=== PATIENT | female | born 1995 | race Caucasian/White ===

== ENCOUNTER 2016-11-25 00:40 | Inpatient (IN) | payer BC ==
[2016-11-25] MEDS ORDERED: PENICILLIN G POTASSIUM 5,000,000 UNIT in DEXTROSE 5% IN WATER 100 ML IV STA ×2 (01:25)
[2016-11-25] MEDS ORDERED: TERBUTALINE 1 MG/ML VIAL SQ PRN (01:25)
[2016-11-25] MEDS ORDERED: OXYTOCIN 10 UNIT/ML 1 ML VIAL IM PRN (01:25)
[2016-11-25] MEDS ORDERED: METHYLERGONOVINE 0.2 MG/ML 1 ML AMP IM PRN (01:25)
[2016-11-25] MEDS ORDERED: CARBOPROST TROMETHAMINE 250 MCG/ML 1 ML AMP IM PRN (01:25)
[2016-11-25] MEDS ORDERED: LIDOCAINE 1% (PF) 10 MG/ML (30 ML SDV) SQ PRN (01:25)
[2016-11-25] MEDS ORDERED: OXYTOCIN 20 UNITS/1000 ML NS 1,000 ML IV SCH (01:30)
[2016-11-25] MEDS: LACTATED RINGERS 1,000 ML IV SCH ×4 (01:55→22:14)
[2016-11-25 02:10] LABS: Basophils # (A) 0.1 k/uL (0-0.2); Basophils % (A) 1 %; CH 27.5; CHCM 33.2; Eosinophils # (A) 0.1 k/uL (0-0.7); Eosinophils % (A) 1 %; HCT 35.7 % (34.0-46.0); HDW 3.46; HGB 11.6 gm/dL (11.4-16.0); Luc # (Auto) 0.23; Luc % (Auto) 2; Lymphocytes # (A) 1.7 k/uL (1.0-4.8); Lymphocytes % (A) 14 %; MCH 27.1 pg (25.0-35.0); MCHC 32.6 g/dL (31.0-37.0); MCV 83.2 fL (80.0-100.0); Mean Platelet Volume 7.4; Monocytes # (A) 0.7 k/uL (0-1.0); Monocytes % (A) 6 %; Neutrophils # (A) 9.2 k/uL (1.3-7.7); Neutrophils % (A) 77 %; Poikilocytosis Slight; RBC 4.29 m/uL (3.80-5.40); RDW 14.1 % (11.5-15.5); WBC 11.9 k/uL (3.8-10.6); WBC (Perox) 13.02
[2016-11-25 02:18] LABS: ALT 26 U/L (9-52); AST 18 U/L (14-36); Blood Urea Nitrogen 9 mg/dL (7-17); Glucose 111 mg/dL (74-99); INR 0.9 (<1.1); LDH 529 U/L (313-618); Non-African American GFR(MDRD) >60 (>60 ml/min/1.73 sqM); Partial Thromboplastin Time 22.5 sec (22.0-30.0); Prothrombin Time 9.7 sec (9.0-12.0)
[2016-11-25 03:14] LABS: Hepatitis B Surface Ag Index 0.06
[2016-11-25 04:36] LABS: Appearance,Urine Clear (Clear); Bacteria,Urine Rare /hpf; Bilirubin,Urine Negative (Negative); Glucose,Urine (UA) Negative (Negative); Ketones,Urine Negative (Negative); Leukocyte Esterase,Urine Small (Negative); Mucus,Urine Rare /hpf; Nitrite,Urine Positive (Negative); PH, Urine 6.5 (5.0-8.0); Particle Count 5949; Protein,Urine Negative (Negative); RBC,Urine 1 /hpf (0-5); Specific Gravity,Urine 1.015 (1.001-1.035); Squamous Epithelial Cell,Urine 3 /hpf (0-4); UA Billing (MACRO vs. MICRO) MICRO; Urobilinogen,Urine <2.0 mg/dL (<2.0); WBC,Urine 11 /hpf (0-5)
[2016-11-25] MEDS: PENICILLIN G POTASSIUM 2,500,000 UNIT in DEXTROSE 5% IN WATER 100 ML IV SCH ×8 (06:01→18:13)
[2016-11-25] MEDS: BUTORPHANOL 1 MG/ML 1 ML VIAL IV PRN ×2 (08:39→10:53)
--- NOTE | 2016-11-25 09:01 | P.HPOB ---
History of Present Illness H&P Date: 11/25/16 Chief Complaint: 38+ weeks, spontaneous rupture of membranes The patient is a 21-year-old 1 para 0 admitted at 38+ weeks by reportedly good dating parameters. She is admitted with documented spontaneous rupture of membranes of clear fluid. She has had no local care but received care through the [facility] system in [place], but chose to present [facility] [place] when she had spontaneous rupture of membranes last night. Her has reportedly been uncomplicated though group B strep status is positive. On admission, all signs are reassuring. Obstetrical history 1 para 0 with current statistics as they are known listed in history of present illness. We are not in possession of her record at this time and labs are pending as is retrieval of the record. Gynecologic history is reportedly uncomplicated with no history of any infections to include STDs. Review of Systems Review of systems is confined to history of present illness. Past Medical History Past Medical History: No Reported History History of Any Multi-Drug Resistant Organisms: None Reported Additional Past Surgical History / Comment(s): ear tubes as an Past Anesthesia/Blood Transfusion Reactions: No Reported Reaction Past Psychological History: No Psychological Hx Reported Smoking Status: Never smoker Past Alcohol Use History: None Reported Past Drug Use History: None Reported - Past Family History Mother Family Medical History: Cancer Additional Family Medical History / Comment(s): breast cancer Sister(s) Family Medical History: Diabetes Mellitus Medications and Allergies Home Medications Medication Instructions Recorded Confirmed Type Pnv with Ca,No.72/Iron/FA 1 tab PO DAILY 11/25/16 11/25/16 History [ Plus Tablet] methylPREDNISolone Dose Pack 1 tab PO DAILY 11/25/16 11/25/16 History [Medrol Dose Pack] Allergies Allergy/AdvReac Type Severity Reaction Status Date / Time No Known Allergies Allergy Verified 11/25/16 00:50 Exam - Vital Signs Vital signs: Vital Signs Temp Pulse Resp BP Pulse Ox 11/25/16 01:25 98.1 F 112 H 16 145/79 11/25/16 01:12 97.5 F L 91 16 151/73 100 Intake and Output 11/24/16 11/25/16 11/25/16 22:59 06:59 14:59 Intake Total 100 Balance 100 Intake: Intake, IV Titration 100 Amount Penicillin G Potassium 5, 100 000,000 unit In Dextrose 5% in Water 100 ml @ 100 mls/hr IV ONCE STA Rx#: [id number] Other: # Voids 1 Weight 81.193 kg In general, this is a well-developed, well-nourished white female in no acute distress. Her heart has a regular rhythm and rate without murmur. Her lungs are clear to auscultation bilaterally in all ni. Her abdomen is gravid, nondistended, has normal active bowel sounds, soft, nontender, and without any palpable masses aside from uterine fundus. Her extremities are without any cyanosis, clubbing, or significant edema and are nontender to palpation bilaterally. Digital cervical examination performed by the nursing staff most recently demonstrates her cervix to be 2 cm dilated, approximately 50% effaced with the vertex in presentation at -2-3 station. Spontaneous rupture of membranes is confirmed. Results Result Diagrams: 11/25/16 01:50 11/25/16 01:50 Abnormal Lab Results - Last 24 Hours (Table) 11/25/16 11/25/16 11/25/16 Range/Units 01:50 01:50 04:00 WBC 11.9 H (3.8-10.6) k/uL Neutrophils # 9.2 H (1.3-7.7) k/uL Glucose 111 H (74-99) mg/dL Urine Nitrite Positive H (Negative) Ur Leukocyte Esterase Small H (Negative) Urine WBC 11 H (0-5) /hpf Urine WBC Clumps Rare H (None) /hpf Urine Bacteria Rare H (None) /hpf Urine Mucus Rare H (None) /hpf Assessment and Plan (1) Spontaneous rupture of amniotic membranes Status: Acute (2) Term Status: Acute Plan: Patient was given the opportunity to travel to her own hospital where her care has occurred through the which she declined. As result, she has been admitted for active management of labor. As she is remote from delivery, Pitocin augmentation was started as well as antibiotic prophylaxis for group B strep colonization. She will continue to have close maternal and surveillance and expectant management will be practiced. She is a candidate for either IV or epidural analgesia, whichever she may choose.
[2016-11-25] MEDS ORDERED: BUPIVACAINE (PF) 0.25% 30 ML VIAL ONE ×2 (13:30→19:13)
[2016-11-25] MEDS ORDERED: fentaNYL (PF) 50 MCG/ML 5 ML AMP ONE ×2 (13:30→19:13)
[2016-11-25] MEDS ORDERED: SODIUM CHLORIDE 0.9% 100 ML BAG ONE ×2 (13:30→19:13)
[2016-11-25] MEDS ORDERED: LACTATED RINGERS 1,000 ML IV ONE (19:00)
[2016-11-25] MEDS ORDERED: CITRIC ACID-SODIUM CITRATE 15 ML CUP PO ONE (19:00)
[2016-11-25] MEDS ORDERED: ONDANSETRON 4 MG/2 ML VIAL ONE (19:13)
[2016-11-25] MEDS ORDERED: OXYTOCIN 10 UNIT/ML 1 ML VIAL ONE (19:13)
[2016-11-25] MEDS ORDERED: ceFAZolin 1,000 MG VIAL ONE (19:13)
[2016-11-25] MEDS ORDERED: KETOROLAC 30 MG/ML 1 ML VIAL ONE (19:13)
[2016-11-25] MEDS ORDERED: ZOLPIDEM 5 MG TAB PO PRN (20:01)
[2016-11-25] MEDS ORDERED: ONDANSETRON 4 MG/2 ML VIAL IVP PRN (20:01)
[2016-11-25] MEDS ORDERED: diphenhydrAMINE 50 MG/ML 1 ML VIAL IVP PRN (20:01)
[2016-11-25] MEDS ORDERED: METOCLOPRAMIDE 5 MG/ML 2 ML VIAL IVP PRN (20:01)
--- NOTE | 2016-11-25 20:01 | P.OP ---
Date of Procedure: 11/25/16 Preoperative Diagnosis: 38-4/7 weeks intrauterine , of the month patient, prolonged rupture of membranes, positive group B strep cultures, arrest of dilatation and descent. Postoperative Diagnosis: Heart shaped uterus, left occiput transverse position, liveborn male infant. Procedure(s) Performed: Primary low transverse section Anesthesia: epidural Surgeon: Claire Nelson Electronic Parts Salesperson #1: Glory Guzman Estimated Blood Loss (ml): 700 IV fluids (ml): 900 Urine output (ml): 100 Pathology: other (Placenta) Condition: stable Disposition: observation Indications for Procedure: Arrest of dilatation and descent at 4-5 cm, 80%, -2. Operative Findings: Heart shaped uterus with septum intermediate down the uterine fundus. Description of Procedure: Patient is brought to the operative suite where the previously placed epidural for labor was topped off per the anesthesia staff. Patient's pain is in the dorsal supine position with left lateral uterine displacement. The appropriate timeout is performed to assure proper patient and procedural identification. Epidural was checked and noted to be adequate. A low transverse skin incision is made in this is carried down through the subcutaneous tissue. Fascia is isolated, scored and extended bilaterally with curved Kelley scissors. Peritoneum is next identified and incised, there is no bowel or bladder involvement. Bladder blade is placed over the dome of the bladder and at all times the bladder is Well from the operative field to avoid any bladder and/or ureteral injury. Scalpel was used to incise the myometrium in a low-transverse fashion. Infant's head is delivered in the left occiput transverse position. The oropharynx, nasopharynx, and external nares were all bulb suctioned on the abdomen. Patient is officially delivered of a liveborn male with scores of 8 and 8 at one and 5 minutes respectively. time 1928 hrs. Placentas delivered manually, it is inspected and noted to be intact with trivascular cord at 1929 hrs. Uterus is then swept clean with a sponge to avoid any retained products of conception at which time a uterine septum is noted in the midline, approximately half way down the fundal portion of the uterus. Care is taken to assure both sections of the uterus are completely clear of any retained products. Uterus is massaged. It is closed in a two- step fashion, first layer running locking with 0 Vicryl, second layer imbricated with 0 Vicryl. Excellent reapproximation and hemostasis is noted. Bilateral tubes and ovaries are noted to be within normal limits to inspection. Abdomen is suctioned with suction on guard posterior to the uterus, and then the uterus is gently placed back into the abdominal cavity. Bilateral gutters are inspected and cleaned. Peritoneum was allowed to close by secondary intention. Fascia is closed in a running stitch of 0 Vicryl with over ligation in the midline. Subcutaneous tissue is irrigated, noted to be clean and dry. It is reapproximated with 3-0 Vicryl in a running stitch. 4-0 undyed Vicryl issues for final skin closure. Steri-Strips and Mastisol are applied to the wound. The uterus is massaged. Total estimated blood loss 700 mL's. Patient is brought back to the recovery room in very good condition with stable vital signs including blood pressure 107/60, pulse 110, 100% O2 saturation. Patient and her are requesting circumcision further infant son.
[2016-11-25] MEDS: SENNOSIDES-DOCUSATE SODIUM 1 EACH TAB PO SCH (20:48)
[2016-11-25] MEDS: HYDROmorphone PCA 5 MG/25 ML SYRINGE IV PRN (20:59)
[2016-11-26] MEDS: HYDROmorphone PCA 5 MG/25 ML SYRINGE IV PRN (03:29)
[2016-11-26] MEDS: LACTATED RINGERS 1,000 ML IV SCH (06:29)
[2016-11-26 07:31] LABS: Basophils % (A) 0 %; CH 27.8; CHCM 32.9; Eosinophils # (A) 0.1 k/uL (0-0.7); Eosinophils % (A) 1 %; HCT 29.5 % (34.0-46.0); HDW 3.42; Hypochromasia Slight; Luc # (Auto) 0.18; Luc % (Auto) 1; Lymphocytes # (A) 1.7 k/uL (1.0-4.8); Lymphocytes % (A) 13 %; MCH 27.7 pg (25.0-35.0); MCHC 32.5 g/dL (31.0-37.0); MCV 85.2 fL (80.0-100.0); Mean Platelet Volume 7.6; Monocytes # (A) 0.6 k/uL (0-1.0); Monocytes % (A) 5 %; Neutrophils # (A) 10.5 k/uL (1.3-7.7); Neutrophils % (A) 81 %; Poikilocytosis Slight; RBC 3.46 m/uL (3.80-5.40); RDW 14.6 % (11.5-15.5); WBC 13.1 k/uL (3.8-10.6); WBC (Perox) 13.52
[2016-11-26 07:33] LABS: HGB 9.6 gm/dL (11.4-16.0)
[2016-11-26] MEDS: SENNOSIDES-DOCUSATE SODIUM 1 EACH TAB PO SCH ×2 (08:34→20:59)
[2016-11-26] MEDS: IBUPROFEN 600 MG TAB PO PRN ×3 (08:35→21:05)
--- NOTE | 2016-11-26 08:49 | P.PN ---
Subjective Principal diagnosis: Postoperative day #1 Slept well, positive flatus, minimal pain. Objective - Vital Signs Vital signs: Vital Signs Temp 97.8 F 11/26/16 04:00 Pulse 96 11/26/16 04:00 Resp 16 11/26/16 04:00 BP 123/79 11/26/16 04:00 Pulse Ox 100 11/25/16 01:12 Intake & Output 11/25/16 11/26/16 11/26/16 18:59 06:59 18:59 Intake Total 2000 1000 Output Total 1100 Balance 2000 -100 Intake: IV 2000 1000 Lactated Ringers 1,000 ml 2000 1000 @ 125 mls/hr IV .Q8H AFSHAN Rx#:[id number] Output: Urine 400 Uretheral (Arizmendi) 300 Estimated Blood Loss 700 - Constitutional General appearance: Present: average body habitus, cooperative - EENT Eyes: Present: PERRLA ENT: Present: hearing grossly normal - Neck Neck: Present: normal ROM - Respiratory Respiratory: bilateral: CTA - Cardiovascular Rhythm: regular - Gastrointestinal General gastrointestinal: Present: normal bowel sounds - Genitourinary Genitourinary Comment(s): Incision clean and dry, intact, well approximated. - Neurologic Neurologic: Present: CNII-XII intact - Musculoskeletal Musculoskeletal: Present: gait normal, strength equal bilaterally - Psychiatric Psychiatric: Present: A&O x's 3, appropriate affect, intact judgment & insight - Labs CBC & Chem 7: 11/26/16 06:42 11/25/16 01:50 Labs: Abnormal Lab Results - Last 24 Hours (Table) 11/26/16 Range/Units 06:42 WBC 13.1 H (3.8-10.6) k/uL RBC 3.46 L (3.80-5.40) m/uL Hgb 9.6 L D (11.4-16.0) gm/dL Hct 29.5 L (34.0-46.0) % Neutrophils # 10.5 H (1.3-7.7) k/uL Assessment and Plan Plan: Continue postoperative care. Circumcision now, possible discharge home tomorrow. Time with Patient: Less than 30
[2016-11-26] MEDS: Acetaminophen-Codeine 300-30mg TAB PO PRN (16:39)
[2016-11-26] MEDS ORDERED: Rhogam IMMUNE GLOBULIN 1,500 UNIT/1 ML IM ONE (16:41)
[2016-11-27] MEDS: Acetaminophen-Codeine 300-30mg TAB PO PRN ×2 (03:59→12:29)
--- NOTE | 2016-11-27 07:53 | P.DS ---
Providers Date of admission: 11/25/16 01:09 Expected date of discharge: 11/27/16 Attending physician: David Lucero Primary care physician: Stated None Hospital Course: This is a 21-year-old white female 1 para 0 EDC 12/05/2016 at 38-4/7 weeks' gestation. Patient was followed by another physician at another institution for her . She had spontaneous amniorrhexis at home, was not in active labor but elected to come to our institution for labor and delivery. She was offered the option of going to her own primary care physician , but elected to stay here for . Please see my partners dictated history and physical for details. Her was remarkable for positive group B strep cultures, penicillin G was started and given every 4 hours per protocol. Patient had arrest of dilatation and descent, and therefore the decision to proceed with primary low transverse section was made. Please see dictated operative note for details. Patient gave to a liveborn male infant with scores of 8 and 8 at one and 5 minutes respectively. Infant weighed 3480 g or 7 lbs. 11 oz. There was an estimated blood loss recorded at the time of surgery of 700 mL's. This morning the patient is doing well. She is voiding, ambulating and passing flatus without difficulty. Vital signs are stable and she is afebrile. Incision is clean and dry, intact with Steri-Strips and subcutaneous stitch applied. Extremities reveal no edema. Chest is clear in all ni. Breasts are not engorged. She is working on breast-feeding her son. Circumcision has been performed. Patient is judged to be in good condition for discharge home today. I have reminded her no intercourse, tampons or douching. She will follow-up in the office with me in 2 weeks for her initial postoperative check, then likely go back to her primary care physician for the 6 week check. She will use over-the- counter ibuprofen products, 200 mg pills, 3 every 6 hours as needed for pain. Prescription for a breast pump is provided. I've discussed with her briefly options for contraception and she will discuss this further with her own primary strip machine tender in the office. Patient Condition at Discharge: Good Plan - Discharge Summary Discharge Medication List Pnv with Ca,No.72/Iron/FA [ Plus Tablet] 1 tab PO DAILY 11/25/16 [ History] methylPREDNISolone Dose Pack [Medrol Dose Pack] 1 tab PO DAILY 11/25/16 [History ] Follow up Appointment(s)/Referral(s): Claire Nelson MD [STAFF PHYSICIAN] - 2 Weeks Discharge Disposition: HOME SELF-CARE
[2016-11-27] MEDS: IBUPROFEN 600 MG TAB PO PRN ×2 (07:59→18:48)
[2016-11-27] MEDS: SENNOSIDES-DOCUSATE SODIUM 1 EACH TAB PO SCH ×2 (07:59→21:38)
[2016-11-28] MEDS: IBUPROFEN 600 MG TAB PO PRN ×2 (00:20→10:50)
[2016-11-28 05:39] LABS: HIV-1/HIV-2 Ab Screen NONREAC (NON REAC)
[2016-11-28 09:55] VITALS: PULSE 82; RESP 16; TEMP 98.2
[2016-11-28] MEDS: SENNOSIDES-DOCUSATE SODIUM 1 EACH TAB PO SCH (09:55)
[2016-11-28 16:23] VITALS: BP 166/60
== END 2016-11-28 17:45 | disposition home or self-care (01) | DRG 766 ==
LOC: FBPOP 00:40 → 4FBP 01:09
PROVIDERS: ADMIT Obstetrics & Gynecology; ATTEND Obstetrics & Gynecology
PROC: 3E0S3NZ Introduction of Analgesics, Hypnotics, Sedatives into Epidural Space, Percutaneous Approach (ICD-10-PCS; 2016-11-25)
PROC: 10D00Z1 Extraction of Products of Conception, Low, Open Approach (ICD-10-PCS; principal; 2016-11-25 19:19)
PROC: 3E0234Z Introduction of Serum, Toxoid and Vaccine into Muscle, Percutaneous Approach (ICD-10-PCS; 2016-11-26)
DX: O42.92 Full-term premature rupture of membranes, unspecified as to length of time between rupture and onset of labor (principal); N85.4 Malposition of uterus; O99.824 Streptococcus B carrier state complicating childbirth; Q51.3 Bicornate uterus; O34.03 Maternal care for unspecified congenital malformation of uterus, third trimester; O62.1 Secondary uterine inertia; O62.0 Primary inadequate contractions; Z80.3 Family history of malignant neoplasm of breast; Z83.3 Family history of diabetes mellitus; Z37.0 Single live birth; Z3A.38 38 weeks gestation of pregnancy
CPT/HCPCS: 59025; 80306; 81001; 82565; 82947; 83615; 84112; 84450; 84460; 84520; 84550; 85025; 85461; 85610; 85730; 86762; 86780; 86850; 86870; 86880; 86900; 86901; 87340; 87389; 87491; 87591; 88307; 99213

== ENCOUNTER 2018-09-28 13:19 | Inpatient (IN) | payer BC, OTHER ==
[2018-09-28] MEDS ORDERED: CITRIC ACID-SODIUM CITRATE 15 ML CUP PO ONE (13:30)
[2018-09-28] MEDS ORDERED: ceFAZolin IN SWFI 2 GM/20 ML SYRINGE IVP ONE (13:30)
[2018-09-28] MEDS: LACTATED RINGERS 1,000 ML IV SCH ×2 (14:09→17:54)
[2018-09-28 14:12] LABS: Basophils # (A) 0.1 k/uL (0-0.2); Basophils % (A) 1 %; Eosinophils # (A) 0.2 k/uL (0-0.7); Eosinophils % (A) 2 %; HCT 39.7 % (34.0-46.0); HGB 13.1 gm/dL (11.4-16.0); Lymphocytes # (A) 1.3 k/uL (1.0-4.8); Lymphocytes % (A) 12 %; MCH 27.2 pg (25.0-35.0); MCHC 33.1 g/dL (31.0-37.0); MCV 82.2 fL (80.0-100.0); Mean Platelet Volume 7.1; Monocytes # (A) 0.4 k/uL (0-1.0); Monocytes % (A) 4 %; Neutrophils # (A) 9.1 k/uL (1.3-7.7); Neutrophils % (A) 82 %; Platelet Count 257 k/uL (150-450); RBC 4.83 m/uL (3.80-5.40); RDW 14.2 % (11.5-15.5); WBC 11.1 k/uL (3.8-10.6)
[2018-09-28 14:30] LABS: Glucose,Whole Blood 71 mg/dL (75-99)
[2018-09-28 14:32] VITALS: BMI 36.9
--- NOTE | 2018-09-28 16:30 | P.HPOB ---
History of Present Illness H&P Date: 09/28/18 Chief Complaint: IUP at 38 and 5/7 weeks, oligohydramnios This is a very pleasant 23-year-old 2 para 1001 at 38-5/7 weeks with an estimated due date of 3:15. Patient was seen in the office today for routine nonstress test secondary to diet-controlled gestational diabetes subsequently a amniotic fluid index was performed by Dr. Lucero and noted to be significantly decreased at 3. Patient has a history of a septate uterus is noted to be in the right horn. Prior done for arrest of labor at 6 cm, patient is noted to be gestational diabetic as stated above and has been doing weekly NSTs per recommendations with her primary CLASSIFIED ADVERTISING SUPERVISOR Dr. Nelson. Blood sugars have been well controlled throughout the . Patient has been receiving routine care since the first trimester. On blood work she had a blood type of A-, rubella immune, hepatitis B surface antigen negative, HIV negative, RPR nonreactive, GBS negative. Review of Systems Constitutional: Denies chills, Denies fatigue, Denies fever Ears, nose, mouth and throat: Denies headache Cardiovascular: Reports leg edema Respiratory: Denies dyspnea Gastrointestinal: Denies constipation, Denies diarrhea Genitourinary: Reports Past Medical History Past Medical History: No Reported History, Diabetes Mellitus Additional Past Medical History / Comment(s): gestational diabetes History of Any Multi-Drug Resistant Organisms: None Reported Past Surgical History: Section Additional Past Surgical History / Comment(s): ear tubes as an infant Past Anesthesia/Blood Transfusion Reactions: No Reported Reaction Past Psychological History: No Psychological Hx Reported Smoking Status: Never smoker Past Alcohol Use History: None Reported Past Drug Use History: None Reported - Past Family History Mother Family Medical History: Cancer, Diabetes Mellitus Additional Family Medical History / Comment(s): breast cancer Sister(s) Family Medical History: Diabetes Mellitus Additional Family Medical History / Comment(s): gestational diabetes Medications and Allergies Home Medications Medication Instructions Recorded Confirmed Type Pnv,Calcium 72/Iron/Folic Acid 1 tab PO DAILY 11/25/16 09/28/18 History [ Plus Tablet] Allergies Allergy/AdvReac Type Severity Reaction Status Date / Time No Known Allergies Allergy Verified 08/05/18 12:28 Exam Osteopathic Statement: *. No significant issues noted on an osteopathic structural exam other than those noted in the History and Physical/Consult. Vital Signs Temp Pulse Resp BP Pulse Ox 09/28/18 13:29 97.5 F L 89 18 131/69 99 Intake and Output 09/28/18 09/28/18 09/28/18 06:59 14:59 22:59 Other: Weight 83.007 kg Targeted physical exam was done the patient in general this a well-nourished well-developed female in no acute distress. She has nonlabored breathing lungs are clear to auscultation bilaterally heart is known to have a regular rate and rhythm abdomen is noted to be gravid and appropriate for gestational age heart tones are noted to be reassuring with moderate variability and she is having irregular contractions. Results Result Diagrams: 09/28/18 13:57 Abnormal Lab Results - Last 24 Hours (Table) 09/28/18 09/28/18 Range/Units 13:57 14:07 WBC 11.1 H (3.8-10.6) k/uL Neutrophils # 9.1 H (1.3-7.7) k/uL POC Glucose (mg/dL) 71 L (75-99) mg/dL Assessment and Plan (1) Term Current Visit: Yes Status: Acute Code(s): Z34.80 - ENCOUNTER FOR SUPRVSN OF NORMAL , UNSP TRIMESTER SNOMED Code(s): 50005613 (2) GDM (gestational diabetes mellitus), class A1 Current Visit: Yes Status: Acute Code(s): O24.410 - GESTATIONAL DIABETES MELLITUS IN , DIET CONTROLLED SNOMED Code(s): 99570406 (3) Oligohydramnios Current Visit: Yes Status: Acute Code(s): O41.00X0 - OLIGOHYDRAMNIOS, UNSP TRIMESTER, NOT APPLICABLE OR UNSP SNOMED Code(s): 41413474 (4) H/O section Current Visit: Yes Status: Acute Code(s): Z98.891 - HISTORY OF UTERINE SCAR FROM PREVIOUS SURGERY SNOMED Code(s): 222821212 Plan: We'll proceed with repeat section as planned and discussed with Dr. Nelson previously. Dr. Lucero saw the patient in the office procedure was reviewed and all questions were answered.
[2018-09-28] MEDS ORDERED: diphenhydrAMINE 25 MG CAP PO PRN (16:38)
[2018-09-28] MEDS ORDERED: ACETAMINOPHEN IV (For NPO) 1,000 MG in EMPTY BAG 1 BAG IVPB ONE (16:38)
[2018-09-28] MEDS ORDERED: NALOXONE 0.4 MG/ML 1 ML VIAL IV PRN (16:38)
[2018-09-28] MEDS ORDERED: diphenhydrAMINE 50 MG/ML 1 ML VIAL IVP PRN ×2 (16:38)
[2018-09-28] MEDS ORDERED: ZOLPIDEM 5 MG TAB PO PRN (16:38)
[2018-09-28] MEDS ORDERED: diphenhydrAMINE 50 MG CAP PO PRN (16:38)
[2018-09-28] MEDS ORDERED: ONDANSETRON 4 MG/2 ML VIAL IVP PRN (16:38)
[2018-09-28] MEDS ORDERED: ACETAMINOPHEN TAB 325 MG TAB PO PRN (16:38)
[2018-09-28] MEDS ORDERED: METOCLOPRAMIDE 5 MG/ML 2 ML VIAL IVP PRN (16:38)
[2018-09-28] MEDS ORDERED: IBUPROFEN IV 800 MG in SODIUM CHLORIDE 0.9% 250 ML IV ONE (16:39)
[2018-09-28] MEDS ORDERED: KETOROLAC 30 MG/ML 1 ML VIAL ONE (16:45)
[2018-09-28] MEDS ORDERED: PHENYLEPHRINE-0.9% NACL SYG 1 MG/10 ML SYRINGE ONE (16:45)
[2018-09-28] MEDS ORDERED: ONDANSETRON 4 MG/2 ML VIAL ONE (16:45)
[2018-09-28] MEDS ORDERED: OXYTOCIN 20 UNITS/1000 ML NS 1,000 ML IV SCH (16:45)
[2018-09-28] MEDS ORDERED: MORPHINE SULFATE (PF) 0.3 MG/0.3 ML SYR ONE (16:45)
[2018-09-28] MEDS ORDERED: NALBUPHINE 10 MG/ML (1 ML AMP) ONE (16:45)
--- NOTE | 2018-09-28 17:42 | P.OP ---
Date of Procedure: 09/28/18 Preoperative Diagnosis: #1. 38-5/7 weeks, previous section, requesting repeat #2. Gestational diabetes #3. Severe oligohydramnios Postoperative Diagnosis: Same Procedure(s) Performed: #1. Repeat low transverse section Anesthesia: spinal Surgeon: David Lucero Trimming Cutter Machine #1: Gay Partida Estimated Blood Loss (ml): 400 IV fluids (ml): 800 Urine output (ml): 200 Pathology: none sent Condition: stable Disposition: floor Operative Findings: Preoperatively, the patient was seen in the office today and, and NST, was found to have a reactive NST but with to repetitive subtle relatively prolonged decelerations. As result, I performed bedside ultrasound at which time amniotic fluid index was noted to be 3.3 cm. She was counseled regarding delivery today and taken to the operating room after approximately 8 hours of fasting. She was delivered of a viable 6 lbs. 2 oz. baby boy with Apgars of 8 at 1 minute and 9 at 5 minutes delivered in the direct occiput posterior position. The placenta was delivered manually, intact, and grossly normal with a grossly normal three-vessel cord. The uterus, tubes, and ovaries were normal to inspection. The lower uterine segment, however, was very thin. Description of Procedure: The patient was prepped and draped in usual fashion after spinal anesthesia was administered by the anesthesiologist. A Pfannenstiel incision was made through pre-existing scar and extended into the abdominal cavity without difficulty. The bladder peritoneum was noted to be significantly distal to the site of the intended hysterotomy. It was therefore left intact. A 2 cm incision was made in the transverse plane of the lower uterine segment to enter the uterus at which time a small amount of clear fluid was noted. The incision was extended in both directions using the bandage scissors. The head was delivered up and through the incision where the nose and mouth were thoroughly suctioned. The remainder of the infant was delivered onto the field where the cord was doubly clamped, cut, and the infant passed for resuscitative measures with weight and Apgars as noted above. cord blood was collected for the necessity of RhoGAM prior to discharge. A segment of cord was doubly clamped, cut, and set aside should cord gases become necessary. The placenta was delivered manually and intact as noted above. The uterus was exteriorized and the interior cavity of the uterus was swept of any remaining placental or membranous fragments. The margins of the incision were grasped with Pringle clamps and the incision closed in 2 layers. The first layer was a running locking stitch of 0 chromic catgut proceeding from margin to margin followed by a running imbricating layer of 0 chromic catgut from margin to margin. Hemostasis appeared to be excellent. The posterior cul-de-sac was then suctioned using a guard and with a laparotomy sponge as well. The uterus was replaced within the abdominal cavity and the gutters swept of any remaining blood, fluid, or clot. The incision was reexamined and found to be hemostatic. The parietal peritoneum was loosely reapproximated and layer of muscles examined and found to be hemostatic. The fascia was closed with 2 running stitches of 0 Vicryl proceeding from lateral margins to the midpoint. The subcutaneous tissues were irrigated, made hemostatic with the Bovie, and reapproximated with a running stitch of 30 plain catgut. The skin was reapproximated with a running subcuticular stitch of 4-0 Vicryl followed by half -inch Steri-Strips placed with Mastisol. Estimated blood loss for the case was approximately 400 mL. There are no complications. All sponge, instrument, and needle counts were correct. The patient tolerated the procedure well and proceeded to the recovery room in stable condition. Both mother and infant are resting comfortably in recovery.
[2018-09-28] MEDS: SENNOSIDES-DOCUSATE SODIUM 1 EACH TAB PO SCH (19:56)
[2018-09-28] MEDS: HYDROcodone/APAP 5-325MG 1 EACH TAB PO PRN (23:47)
[2018-09-29] MEDS: LACTATED RINGERS 1,000 ML IV SCH ×3 (02:19→02:29)
--- NOTE | 2018-09-29 06:14 | P.PN ---
Progress Note - Text Progress Note Date: 09/29/18 POD 1 c section with duramorph spinal. Had some pain overnight which resolved with norco tab. Doing well this morning, minimal pain at incision site. moving lower ext freely, no numbness or tingling, still feels that the legs are swollen. has voided overnight and has ambulated. continue PRN norco/motrin/tylenol as needed.
[2018-09-29 07:25] LABS: Basophils % (A) 0 %; Eosinophils # (A) 0.1 k/uL (0-0.7); Eosinophils % (A) 1 %; HCT 33.7 % (34.0-46.0); HGB 10.9 gm/dL (11.4-16.0); Lymphocytes # (A) 1.5 k/uL (1.0-4.8); Lymphocytes % (A) 15 %; MCH 26.6 pg (25.0-35.0); MCHC 32.3 g/dL (31.0-37.0); MCV 82.4 fL (80.0-100.0); Mean Platelet Volume 8.2; Monocytes # (A) 0.5 k/uL (0-1.0); Monocytes % (A) 5 %; Neutrophils # (A) 8.1 k/uL (1.3-7.7); Neutrophils % (A) 78 %; Platelet Count 206 k/uL (150-450); RDW 14.3 % (11.5-15.5); WBC 10.4 k/uL (3.8-10.6)
[2018-09-29] MEDS: SENNOSIDES-DOCUSATE SODIUM 1 EACH TAB PO SCH ×2 (07:27→19:49)
[2018-09-29] MEDS: IBUPROFEN 600 MG TAB PO PRN ×3 (07:27→23:44)
--- NOTE | 2018-09-29 08:51 | P.PNOBGPC ---
Subjective - Subjective Patient reports: Reports appetite normal, Reports voiding normally, Reports pain well controlled, Reports ambulating normally : doing well Objective - Vital Signs Latest vital signs: Vital Signs Temp Pulse Resp BP Pulse Ox 09/29/18 07:55 98.5 F 103 H 18 119/82 99 09/29/18 00:00 97.8 F 87 16 144/73 98 09/28/18 20:00 97.6 F 95 16 135/68 98 09/28/18 19:30 97.8 F 94 16 143/73 98 09/28/18 19:05 97.4 F L 102 H 18 118/56 98 09/28/18 18:35 98.0 F 99 18 128/61 98 09/28/18 18:20 97.6 F 105 H 18 109/53 98 09/28/18 18:05 97.3 F L 96 18 116/56 97 09/28/18 17:50 97.4 F L 104 H 18 125/56 97 09/28/18 17:35 97.2 F L 88 18 127/60 98 09/28/18 13:29 97.5 F L 89 18 131/69 99 Intake and Output 09/28/18 09/29/18 09/29/18 22:59 06:59 14:59 Intake Total 2500 Output Total 350 600 100 Balance -350 1900 -100 Intake: IV 2500 ACETAMINOPHEN IV (For NPO 1000 ) 1,000 mg In Empty Bag 1 bag @ 400 mls/hr IVPB ONCE ONE Rx#:[id number] Ibuprofen IV 800 mg In 500 Sodium Chloride 0.9% 250 ml @ 500 mls/hr IV ONCE ONE Rx#:[id number] Oxytocin 20 Units/1000 ml 1000 Ns 1,000 ml @ Per Protocol IV .Q0M [facility] Rx#: [id number] Output: Urine 350 600 100 Uretheral (Arizmendi) 300 Other: Voiding Method Indwelling Catheter Indwelling Catheter # Voids 1 - Exam Extremities: Present: normal Abdomen: Present: normal appearance, soft. Absent: distention, tenderness Incision: Present: normal, dry, intact Uterus: Present: normal, firm (The uterine fundus is tonic and nontender just below the umbilicus.) - Labs Labs: Abnormal Lab Results - Last 24 Hours (Table) 09/28/18 09/28/18 09/29/18 Range/Units 13:57 14:07 07:12 WBC 11.1 H (3.8-10.6) k/uL Hgb 10.9 L (11.4-16.0) gm/dL Hct 33.7 L (34.0-46.0) % Neutrophils # 9.1 H 8.1 H (1.3-7.7) k/uL POC Glucose (mg/dL) 71 L (75-99) mg/dL Assessment and Plan (1) S/P section Current Visit: Yes Status: Acute Code(s): Z98.891 - HISTORY OF UTERINE SCAR FROM PREVIOUS SURGERY SNOMED Code(s): 382331978 Plan: Continue routine postoperative care. I have encouraged the patient to inability the hallways routinely. Possible discharge home tomorrow pending no complications.
[2018-09-29] MEDS: HYDROcodone/APAP 5-325MG 1 EACH TAB PO PRN ×2 (11:56→21:05)
[2018-09-29] MEDS ORDERED: PRENATAL VIT-IRON-FOLIC ACID 1 EACH CAP PO SCH (12:00)
[2018-09-29 16:20] LABS: Hemoglobin A1C 5.3 % (4.0-6.0)
[2018-09-30] MEDS: HYDROcodone/APAP 5-325MG 1 EACH TAB PO PRN (07:19)
[2018-09-30 08:33] VITALS: BP 126/74; PULSE 106; RESP 18; TEMP 98.6
[2018-09-30] MEDS: SENNOSIDES-DOCUSATE SODIUM 1 EACH TAB PO SCH (10:56)
[2018-09-30] MEDS: IBUPROFEN 600 MG TAB PO PRN (10:57)
== END 2018-09-30 13:25 | disposition home or self-care (01) | DRG 788 ==
LOC: 4FBP 13:19
PROVIDERS: ADMIT Obstetrics & Gynecology; ATTEND Obstetrics & Gynecology
PROC: 10D00Z1 Extraction of Products of Conception, Low, Open Approach (ICD-10-PCS; principal; 2018-09-28 17:13)
DX: O41.03X0 Oligohydramnios, third trimester, not applicable or unspecified (principal); O24.420 Gestational diabetes mellitus in childbirth, diet controlled; O34.211 Maternal care for low transverse scar from previous cesarean delivery; Z37.0 Single live birth; Z3A.38 38 weeks gestation of pregnancy; Z80.3 Family history of malignant neoplasm of breast; Z83.3 Family history of diabetes mellitus
CPT/HCPCS: 83036; 85025; 86850; 86870; 86880; 86900; 86901

== ENCOUNTER 2019-02-18 11:24 | Emergency (ER) | payer BC, OTHER ==
[2019-02-18] MEDS ORDERED: ONDANSETRON 4 MG/2 ML VIAL IVP STA (11:43)
[2019-02-18] MEDS ORDERED: SODIUM CHLORIDE 0.9% 1,000 ML IV STA (11:43)
--- NOTE | 2019-02-18 11:59 | ED ---
Abdominal Pain HPI - General Chief Complaint: Abdominal Pain Stated Complaint: UPPER ABDOMINAL PAIN, LOWER BACK PAIN Time Seen by Provider: 02/18/19 11:39 Source: patient Mode of arrival: ambulatory Limitations: no limitations - History of Present Illness Initial Comments: Dictation was produced using [employer] dictation software. please excuse any grammatical, word or spelling errors. Chief Complaint: 24-year-old female presents with epigastric abdominal pain. History of Present Illness: 24-year-old female presents today with epigastric abdominal pain. Patient states she's had this pain over the last week. She states that the episodes are intermittent. She reports that pain is epigastric. Denies any exacerbating or mitigating factors. She'll signs his nausea and vomiting. Her emesis is nonbloody nonbilious. She does report having black stool however this is only after she takes Pepto-Bismol. Denies any co nstitutional symptoms. Patient has history of section. The ROS documented in this emergency department record has been reviewed and confirmed by me. Those systems with pertinent positive or negative responses have been documented in the HPI. All other systems are other negative and/or noncontributory. PHYSICAL EXAM: General Impression: Alert and oriented x3, not in acute distress HEENT: Normocephalic atraumatic, extra-ocular movements intact, pupils equal and reactive to light bilaterally, mucous membranes moist. Cardiovascular: Heart regular rate and rhythm, S1&S2 audible, no murmurs, rubs or gallops Chest: Lungs clear to auscultation bilaterally, no rhonchi, no wheeze, no rales Abdomen: Bowel sounds present, abdomen soft, mild epigastric tenderness to palpation, non-distended, no organomegaly Musculoskeletal: Pulses present and equal in all extremities, no peripheral ed cherelle Motor: no focal deficits noted Neurological: CN II-XII grossly intact, no focal motor or sensory deficits noted Skin: Intact with no visualized rashes Psych: Normal affect and mood ED course: 24-year-old female presents with epigastric abdominal pain. Is upon arrival shows heart rate of 120, rest of vital signs within acceptable limits.Review vital signs are unremarkable. Laboratory evaluation obtained. Leukocytosis of 13.5. This likely secondary to stress. Rest of CBC unremarkable. Coag panel unremarkable. Urinalysis shows 6 white blood cells. Patient denies any urinary symptoms. Beta-hCG is negative. KUB x-rays negative. Patient's clinical presentation is suspicious for irritable bowel syndrome versus inflammatory bowel disease versus gastroenteritis. Patient appears well at this time. She is asymptomatic. Patient given antidiarrheal medication and Bentyl for when necessary symptoms. She is also given referral to GI doctor. Patient told to return to the emergency department if she develops worsening abdominal pain, fevers. Agreeable. Patient to be discharge. - Related Data Home Medications Medication Instructions Recorded Confirmed Sertraline HCl [Zoloft] 25 mg PO DAILY 02/18/19 02/18/19 Previous Rx's Medication Instructions Recorded Dicyclomine [Bentyl] 10 mg PO TID PRN #12 capsule 02/18/19 Loperamide HCl [Loperamide] 2 mg PO TID PRN #12 capsule 02/18/19 Allergies Allergy/AdvReac Type Severity Reaction Status Date / Time No Known Allergies Allergy Verified 02/18/19 11:37 Review of Systems ROS Statement: Those systems with pertinent positive or pertinent negative responses have been documented in the HPI. ROS Other: All systems not noted in ROS Statement are negative. Past Medical History Past Medical History: No Reported History, Diabetes Mellitus Additional Past Medical History / Comment(s): gestational diabetes History of Any Multi-Drug Resistant Organisms: None Reported Past Surgical History: Section Additional Past Surgical History / Comment(s): ear tubes as an Past Anesthesia/Blood Transfusion Reactions: No Reported Reaction Past Psychological History: No Psychological Hx Reported Smoking Status: Never smoker Past Alcohol Use History: None Reported Past Drug Use History: None Reported - Past Family History Mother Family Medical History: Cancer, Diabetes Mellitus Additional Family Medical History / Comment(s): breast cancer Sister(s) Family Medical History: Diabetes Mellitus Additional Family Medical History / Comment(s): gestational diabetes General Exam Limitations: no limitations Course Vital Signs 02/18/19 11:29 Temperature 98.2 F Pulse Rate 120 H Respiratory 20 Rate Blood Pressure 121/87 O2 Sat by Pulse 99 Oximetry Medical Decision Making - Lab Data Result diagrams: 02/18/19 12:01 02/18/19 12:01 Lab Results 02/18/19 02/18/19 02/18/19 Range/Units 12:01 12:01 12:01 WBC 13.5 H (3.8-10.6) k/uL RBC 5.34 (3.80-5.40) m/uL Hgb 14.6 (11.4-16.0) gm/dL Hct 43.8 (34.0-46.0) % MCV 82.1 (80.0-100.0) fL MCH 27.4 (25.0-35.0) pg MCHC 33.3 (31.0-37.0) g/dL RDW 14.2 (11.5-15.5) % Plt Count 341 (150-450) k/uL Neutrophils % 73 % Lymphocytes % 15 % Monocytes % 4 % Eosinophils % 6 % Basophils % 1 % Neutrophils # 9.8 H (1.3-7.7) k/uL Lymphocytes # 2.1 (1.0-4.8) k/uL Monocytes # 0.6 (0-1.0) k/uL Eosinophils # 0.8 H (0-0.7) k/uL Basophils # 0.1 (0-0.2) k/uL Sodium 141 (137-145) mmol/L Potassium 4.5 (3.5-5.1) mmol/L Chloride 105 (98-107) mmol/L Carbon Dioxide 23 (22-30) mmol/L Anion Gap 13 mmol/L BUN 13 (7-17) mg/dL Creatinine 0.79 (0.52-1.04) mg/dL Est GFR (CKD-EPI)AfAm >90 (>60 ml/min/1.73 sqM) Est GFR (CKD-EPI)NonAf >90 (>60 ml/min/1.73 sqM) Glucose 90 (74-99) mg/dL Calcium 9.4 (8.4-10.2) mg/dL Total Bilirubin 0.4 (0.2-1.3) mg/dL AST 20 (14-36) U/L ALT 31 (9-52) U/L Alkaline Phosphatase 98 (38-126) U/L Total Protein 8.1 (6.3-8.2) g/dL Albumin 4.6 (3.5-5.0) g/dL Lipase 65 (23-300) U/L Urine Color Yellow Urine Appearance Clear (Clear) Urine pH 6.0 (5.0-8.0) Ur Specific [place] 1.022 (1.001-1.035) Urine Protein Trace H (Negative) Urine Glucose (UA) Negative (Negative) Urine Ketones Negative (Negative) Urine Blood Small H (Negative) Urine Nitrite Negative (Negative) Urine Bilirubin Negative (Negative) Urine Urobilinogen <2.0 (<2.0) mg/dL Ur Leukocyte Esterase Small H (Negative) Urine RBC 20 H (0-5) /hpf Urine WBC 6 H (0-5) /hpf Ur Squamous Epith Cells 2 (0-4) /hpf Urine Mucus Occasional H (None) /hpf Urine HCG, Qual (Not Detectd) 02/18/19 Range/Units 12:01 WBC (3.8-10.6) k/uL RBC (3.80-5.40) m/uL Hgb (11.4-16.0) gm/dL Hct (34.0-46.0) % MCV (80.0-100.0) fL MCH (25.0-35.0) pg MCHC (31.0-37.0) g/dL RDW (11.5-15.5) % Plt Count (150-450) k/uL Neutrophils % % Lymphocytes % % Monocytes % % Eosinophils % % Basophils % % Neutrophils # (1.3-7.7) k/uL Lymphocytes # (1.0-4.8) k/uL Monocytes # (0-1.0) k/uL Eosinophils # (0-0.7) k/uL Basophils # (0-0.2) k/uL Sodium (137-145) mmol/L Potassium (3.5-5.1) mmol/L Chloride (98-107) mmol/L Carbon Dioxide (22-30) mmol/L Anion Gap mmol/L BUN (7-17) mg/dL Creatinine (0.52-1.04) mg/dL Est GFR (CKD-EPI)AfAm (>60 ml/min/1.73 sqM) Est GFR (CKD-EPI)NonAf (>60 ml/min/1.73 sqM) Glucose (74-99) mg/dL Calcium (8.4-10.2) mg/dL Total Bilirubin (0.2-1.3) mg/dL AST (14-36) U/L ALT (9-52) U/L Alkaline Phosphatase (38-126) U/L Total Protein (6.3-8.2) g/dL Albumin (3.5-5.0) g/dL Lipase (23-300) U/L Urine Color Urine Appearance (Clear) Urine pH (5.0-8.0) Ur Specific [place] (1.001-1.035) Urine Protein (Negative) Urine Glucose (UA) (Negative) Urine Ketones (Negative) Urine Blood (Negative) Urine Nitrite (Negative) Urine Bilirubin (Negative) Urine Urobilinogen (<2.0) mg/dL Ur Leukocyte Esterase (Negative) Urine RBC (0-5) /hpf Urine WBC (0-5) /hpf Ur Squamous Epith Cells (0-4) /hpf Urine Mucus (None) /hpf Urine HCG, Qual Not Detected (Not Detectd) Disposition Clinical Impression: Gastroenteritis Disposition: HOME SELF-CARE Condition: Good Instructions (If sedation given, give patient instructions): Acute Abdominal Pain (ED) Prescriptions: Dicyclomine [Bentyl] 10 mg PO TID PRN #12 capsule PRN Reason: abdominal cramping Loperamide HCl [Loperamide] 2 mg PO TID PRN #12 capsule PRN Reason: yes Is patient prescribed a controlled substance at d/c from ED?: No Referrals: Sesar Tovar MD [STAFF PHYSICIAN] - 1-2 days Time of Disposition: 14:02
[2019-02-18 12:24] LABS: Basophils # (A) 0.1 k/uL (0-0.2); Basophils % (A) 1 %; Eosinophils # (A) 0.8 k/uL (0-0.7); Eosinophils % (A) 6 %; HCT 43.8 % (34.0-46.0); HGB 14.6 gm/dL (11.4-16.0); Lymphocytes # (A) 2.1 k/uL (1.0-4.8); Lymphocytes % (A) 15 %; MCH 27.4 pg (25.0-35.0); MCHC 33.3 g/dL (31.0-37.0); MCV 82.1 fL (80.0-100.0); Mean Platelet Volume 6.9; Monocytes # (A) 0.6 k/uL (0-1.0); Monocytes % (A) 4 %; Neutrophils # (A) 9.8 k/uL (1.3-7.7); Neutrophils % (A) 73 %; Platelet Count 341 k/uL (150-450); RBC 5.34 m/uL (3.80-5.40); RDW 14.2 % (11.5-15.5); WBC 13.5 k/uL (3.8-10.6)
[2019-02-18 12:34] LABS: Appearance,Urine Clear (Clear); Bilirubin,Urine Negative (Negative); Blood,Urine Small (Negative); Color,Urine Yellow; Glucose,Urine (UA) Negative (Negative); Ketones,Urine Negative (Negative); Leukocyte Esterase,Urine Small (Negative); Mucus,Urine Occasional /hpf; Nitrite,Urine Negative (Negative); Protein,Urine Trace (Negative); RBC,Urine 20 /hpf (0-5); Specific Gravity,Urine 1.022 (1.001-1.035); Squamous Epithelial Cell,Urine 2 /hpf (0-4); Urobilinogen,Urine <2.0 mg/dL (<2.0); WBC,Urine 6 /hpf (0-5)
[2019-02-18 12:36] LABS: ALT 31 U/L (9-52); AST 20 U/L (14-36); African American GFR (CKD) >90 (>60 ml/min/1.73 sqM); Albumin 4.6 g/dL (3.5-5.0); Alkaline Phosphatase 98 U/L (38-126); Anion Gap 13 mmol/L; Blood Urea Nitrogen 13 mg/dL (7-17); Calcium 9.4 mg/dL (8.4-10.2); Carbon Dioxide 23 mmol/L (22-30); Chloride 105 mmol/L (98-107); Glucose 90 mg/dL (74-99); Potassium 4.5 mmol/L (3.5-5.1); Sodium 141 mmol/L (137-145); Total Bilirubin 0.4 mg/dL (0.2-1.3); Total Protein 8.1 g/dL (6.3-8.2)
--- NOTE | 2019-02-18 13:06 | XR ---
EXAMINATION TYPE: XR KUB , 2 VIEWS DATE OF EXAM ORDERED: 02/18/2019 HISTORY: abdominal pain. COMPARISON: None. FINDINGS: Lung bases are clear. Within the abdomen, the abdominal gas pattern is normal. There is no evidence of obstruction or free air. Jewelry projects over the navel. IMPRESSION: NO ACUTE INTRA-ABDOMINAL ABNORMALITY.
[2019-02-18] MEDS ORDERED: MAG HYDROX/AL HYDROX/SIMETH 30 ML, HYOSCYAMINE ELIXIR 10 ML, CIMETIDINE HCL 300 MG, LID... PO STA ×4 (13:07)
[2019-02-18 14:55] VITALS: BP 110/74; PULSE 75; RESP 16; TEMP 98.3
== END 2019-02-18 14:30 | disposition home or self-care (01) ==
LOC: EC 11:24
DX: K52.9 Noninfective gastroenteritis and colitis, unspecified (principal); Z32.02 Encounter for pregnancy test, result negative; Z79.899 Other long term (current) drug therapy
CPT/HCPCS: 36415; 80053; 83690; 85025; 81001; 81025; 74018; 99284; 96374; 96361; J2405

== ENCOUNTER 2020-07-16 01:37 | Inpatient (IN) | payer BC, OTHER ==
[2020-07-16] MEDS: LACTATED RINGERS 1,000 ML IV SCH ×2 (02:20→06:02)
[2020-07-16] MEDS ORDERED: CITRIC ACID-SODIUM CITRATE 15 ML CUP PO ONE (03:18)
[2020-07-16 04:09] LABS: Basophils % (A) 0 %; Eosinophils # (A) 0.2 k/uL (0-0.7); Eosinophils % (A) 2 %; HCT 34.1 % (34.0-46.0); HGB 11.7 gm/dL (11.4-16.0); Lymphocytes % (A) 22 %; MCHC 34.3 g/dL (31.0-37.0); MCV 78.8 fL (80.0-100.0); Mean Platelet Volume 8.1; Monocytes # (A) 0.5 k/uL (0-1.0); Monocytes % (A) 6 %; Neutrophils # (A) 6.3 k/uL (1.3-7.7); Neutrophils % (A) 68 %; Platelet Count 269 k/uL (150-450); RBC 4.32 m/uL (3.80-5.40); RDW 14.1 % (11.5-15.5); WBC 9.2 k/uL (3.8-10.6)
[2020-07-16 06:16] LABS: Glucose,Whole Blood 80 mg/dL (75-99)
[2020-07-16] MEDS ORDERED: MORPHINE SULFATE (PF) 0.3 MG/0.3 ML SYR ONE (06:39)
[2020-07-16] MEDS ORDERED: OXYTOCIN 10 UNIT/ML 1 ML VIAL ONE (06:39)
[2020-07-16] MEDS ORDERED: KETOROLAC 15 MG/ML 1 ML VIAL ONE (06:39)
[2020-07-16] MEDS ORDERED: fentaNYL (PF) 50 MCG/ML 2 ML AMP ONE (06:39)
[2020-07-16] MEDS ORDERED: ONDANSETRON 4 MG/2 ML VIAL ONE (06:39)
[2020-07-16] MEDS ORDERED: LACTATED RINGERS 1,000 ML IV ONE (07:00)
[2020-07-16] MEDS ORDERED: NALOXONE 0.4 MG/ML 1 ML VIAL IV PRN (07:04)
[2020-07-16] MEDS ORDERED: HYDROmorphone 0.5 MG/0.5 ML SYRINGE IVP PRN (07:04)
[2020-07-16] MEDS ORDERED: ONDANSETRON 4 MG/2 ML VIAL IVP PRN (07:04)
[2020-07-16] MEDS ORDERED: KETOROLAC 15 MG/ML 1 ML VIAL IVP PRN ×2 (07:04→07:41)
[2020-07-16] MEDS ORDERED: diphenhydrAMINE 50 MG/ML 1 ML VIAL IVP PRN ×3 (07:04→07:41)
--- NOTE | 2020-07-16 07:35 | P.HPOB ---
History of Present Illness H&P Date: 07/16/20 Chief Complaint: My water broke at midnight This is a 25-year-old female 3 para 2002 EDC 07/28/2020 at 38-2/7 weeks' gestation. Patient has had 2 previous sections and is scheduled for repeat and tubal ligation on July 22. However, she presented to the hospital with her water rupturing at midnight, clear fluid. Irregular rare contractions. Fetus active. history significant for blood type A-, rubella status immune. Group B strep cultures negative, HIV testing, gonorrhea and chlamydia cultures all negative. Urine culture negative. One-hour Glucola elevated and 3 hour GTT consistent with gestational diabetes. Past medical history is significant for kidney stones as well as the PUPPS rash in a previous . Past surgical history sections 2017, 2019. Eustachian tubes placed in the ears as a child. Current medications vitamins daily, Tylenol Sinus when necessary. ALLERGIES none known. Social history patient is single, father of the baby is involved. She is a former tobacco smoker. She denies alcohol or drug use. On examination patient is 4 foot 11 inches, 204 pounds, blood pressure 131/65 on admission, vital signs are all stable and patient is afebrile. The general physical exam is within normal limits. Testing of the perineal body is positive for ruptured membranes. heart rate is consistent with reactive NST. Abdomen is soft and nontender. Extremities reveal no edema. Impression: 38-2/7 weeks intrauterine , spontaneous amniorrhexis, 2 previous C-sections, requesting repeat and tubal ligation. Plan: We will proceed with primary low transverse section, antibiotic prophylaxis, and bilateral tubal ligation. All questions addressed and answered. Review of Systems Constitutional: Reports as per HPI Past Medical History Past Medical History: No Reported History Additional Past Medical History / Comment(s): gestational diabetes History of Any Multi-Drug Resistant Organisms: None Reported Past Surgical History: Section Additional Past Surgical History / Comment(s): ear tubes as an infant Past Anesthesia/Blood Transfusion Reactions: No Reported Reaction Past Psychological History: No Psychological Hx Reported Smoking Status: Never smoker Past Alcohol Use History: None Reported Past Drug Use History: None Reported - Past Family History Mother Family Medical History: Cancer, Diabetes Mellitus Additional Family Medical History / Comment(s): breast cancer Sister(s) Family Medical History: Diabetes Mellitus Additional Family Medical History / Comment(s): gestational diabetes Medications and Allergies Home Medications Medication Instructions Recorded Confirmed Type 78/Iron/Folate 1/Dha 1 each PO DAILY 02/02/20 07/16/20 History [Prenate Dha Softgel] Allergies Allergy/AdvReac Type Severity Reaction Status Date / Time No Known Allergies Allergy Verified 07/16/20 01:56 Exam Vital Signs Temp Pulse Resp BP 07/16/20 02:48 98.3 F 123 H 18 131/65 07/16/20 02:46 98.3 F 123 H 18 131/65 Intake and Output 07/15/20 07/16/20 07/16/20 22:59 06:59 14:59 Intake Total 1000 Balance 1000 Intake: IV 1000 Other: # Voids 3 Weight 92.533 kg See dictation under HPI please Results Result Diagrams: 07/16/20 03:59 Abnormal Lab Results - Last 24 Hours (Table) 07/16/20 Range/Units 03:59 MCV 78.8 L (80.0-100.0) fL Assessment and Plan Assessment: 38-2/7 weeks intrauterine , spontaneous amniorrhexis. Here for repeat and tubal ligation. Plan: 2 g of Ancef are given. We will proceed with repeat low transverse section and tubal ligation. Time with Patient: Less than 30
[2020-07-16] MEDS ORDERED: diphenhydrAMINE 50 MG CAP PO PRN (07:41)
[2020-07-16] MEDS ORDERED: diphenhydrAMINE 25 MG CAP PO PRN (07:41)
[2020-07-16] MEDS ORDERED: ZOLPIDEM 5 MG TAB PO PRN (07:41)
[2020-07-16] MEDS ORDERED: METOCLOPRAMIDE 5 MG/ML 2 ML VIAL IVP PRN (07:41)
--- NOTE | 2020-07-16 07:42 | P.OP ---
Date of Procedure: 07/16/20 Preoperative Diagnosis: 38-2/7 weeks intrauterine , spontaneous amniorrhexis. 2 previous C-sections, undesired fertility Postoperative Diagnosis: Same, liveborn male . Procedure(s) Performed: Repeat low transverse section and tubal ligation Anesthesia: spinal Surgeon: Claire Nelson Back Order Clerk #1: Juany Lindquist Estimated Blood Loss (ml): 400 IV fluids (ml): 600 Urine output (ml): 200 Pathology: none sent Condition: stable Disposition: PACU Operative Findings: Liveborn male , scores 9 and 9 at one and 5 minutes, weight 8 lbs. 2 oz. or 3680 g. Description of Procedure: Patient is brought to the operating suite where spinal analgesia is administered without difficulty. She's placed in the dorsal supine position with left lateral uterine displacement. Arizmendi catheter to direct drainage.Antibiotics are given. The appropriate timeout is performed to assure proper patient and procedural identification. Analgesia is checked and noted to be adequate. The abdomen is prepped and draped in usual sterile fashion. A repeat low transverse skin incision is made in this is carried down through the subcutaneous tissue which is approximately 3 cm in depth. The fascia is isolated, scored, and extended bilaterally with curved Kelley scissors. Peritoneum is next identified and incised, there is no bowel or bladder involvement. Metzenbaum scissors are used to develop the bladder flap and it is at all times Well from the operative field to avoid bladder and/or ureteral injury. A repeat low transverse uterine incision is made and extended with blunt dissection. Clear fluid is encountered. The 's head is delivered occiput anterior. Patient is officially delivered of a liveborn male infant at 0656 hours. Umbilical cord is doubly clamped and ligated, he is handed to waiting nurses for evaluation where scores of 9 and 9 at one and 5 minutes respectively are given. weighs 8 lbs. 2 oz. or 3680 g. The placenta is delivered manually, it is inspected and noted to be fully intact with trivascular cord at 0657 hours. Uterus is massaged and externalized. It is swept clean with a sterile sponge to avoid any retained products of conception. The uterus is closed in a single full-thickness running locking stitch of 0 Vicryl suture for excellent reapproximation. Patient's desire to have tubal ligation is once again confirmed. Filshie clips are used in the isthmic portion of both tubes, with care to traverse the entire diameter of the tube into the mesosalpinx. Fimbriated ends are identified. Abdomen is then suctioned with suction on guard and the uterus is placed back into the abdominal cavity gently. Bilateral gutters are inspected and cleaned. All suture lines are completely intact and hemostatically stable. Peritoneum is allowed to close by secondary intention. Fascia is closed in a running stitch of 0 Vicryl suture with over ligation in the midline. The wound is irrigated, noted to be clean and dry. Subcutaneous tissue is reapproximated in a running stitch of 3-0 Vicryl. 4-0 undyed Monocryl is used for final skin closure. Steri-Strips and Mastisol are applied to the wound. Uterus is massaged. All sponge needle and enhancement counts are correct. Arizmendi is noted to be draining clear urine. Patient is brought back to the recovery room in very good condition with a pulse of 68, blood pressure 117/78. They are requesting circumcision for their infant son.
[2020-07-16] MEDS ORDERED: LACTATED RINGERS 1,000 ML IV SCH (07:45)
[2020-07-16] MEDS ORDERED: OXYTOCIN 20 UNITS/1000 ML NS 1,000 ML IV SCH (08:15)
[2020-07-16] MEDS: IBUPROFEN 600 MG TAB PO PRN (20:03)
[2020-07-16] MEDS: SENNOSIDES-DOCUSATE SODIUM 1 EACH TAB PO SCH (20:04)
[2020-07-17] MEDS: ACETAMINOPHEN TAB 325 MG TAB PO PRN ×3 (02:58→19:48)
--- NOTE | 2020-07-17 06:03 | P.PN ---
Progress Note - Text Progress Note Date: 07/17/20 Patient is postop day 1 from cesarian section with spinal Duramorph. As of last night she had been ambulating, her pain had been controlled well. She is resting comfortably this morning. She had been to the restroom and was able to have a return of bladder function. Her VAS today is 1 out of 10. She has some pain with movement otherwise no pain. Minor pruritus is noted. She is using as needed ibuprofen for pain.
[2020-07-17 06:57] LABS: Basophils % (A) 0 %; Eosinophils # (A) 0.2 k/uL (0-0.7); Eosinophils % (A) 2 %; HCT 33.1 % (34.0-46.0); HGB 11.1 gm/dL (11.4-16.0); Lymphocytes # (A) 1.9 k/uL (1.0-4.8); Lymphocytes % (A) 18 %; MCH 26.4 pg (25.0-35.0); MCHC 33.4 g/dL (31.0-37.0); Mean Platelet Volume 8.3; Monocytes # (A) 0.5 k/uL (0-1.0); Monocytes % (A) 5 %; Neutrophils # (A) 7.4 k/uL (1.3-7.7); Neutrophils % (A) 73 %; Platelet Count 226 k/uL (150-450); RBC 4.19 m/uL (3.80-5.40); RDW 14.3 % (11.5-15.5); WBC 10.2 k/uL (3.8-10.6)
[2020-07-17] MEDS: SENNOSIDES-DOCUSATE SODIUM 1 EACH TAB PO SCH ×3 (07:19→19:48)
--- NOTE | 2020-07-17 07:53 | P.PN ---
Subjective Progress Note Date: 07/17/20 Principal diagnosis: Postoperative day #1 Slept well. Minimal pain. Minimal to moderate lochia rubra. No complaints. Objective - Vital Signs Vital signs: Vital Signs Temp 98.1 F 07/17/20 03:19 Pulse 92 07/17/20 03:19 Resp 18 07/17/20 03:19 BP 120/58 07/17/20 03:19 Pulse Ox 99 07/17/20 03:19 Intake & Output 07/16/20 07/17/20 07/17/20 18:59 06:59 18:59 Output Total 300 Balance -300 Output: Urine 300 Uretheral (Arizmendi) 300 - Constitutional General appearance: Present: average body habitus - EENT Eyes: Present: PERRLA ENT: Present: hearing grossly normal - Respiratory Respiratory: bilateral: CTA - Cardiovascular Rhythm: regular - Gastrointestinal General gastrointestinal: Present: normal bowel sounds - Genitourinary Genitourinary Comment(s): Incision clean and dry, intact. Fundus firm, midline, symmetric, 18 week size. - Integumentary Integumentary: Present: normal - Neurologic Neurologic: Present: CNII-XII intact - Musculoskeletal Musculoskeletal: Present: gait normal, strength equal bilaterally - Psychiatric Psychiatric: Present: A&O x's 3, appropriate affect, intact judgment & insight - Labs CBC & Chem 7: 07/17/20 06:40 Labs: Abnormal Lab Results - Last 24 Hours (Table) 07/17/20 Range/Units 06:40 Hgb 11.1 L (11.4-16.0) gm/dL Hct 33.1 L (34.0-46.0) % MCV 79.0 L (80.0-100.0) fL Assessment and Plan Assessment: Doing well postoperative day #1 Plan: Continue care. Circumcision on performed. Likely discharge home tomorrow.
[2020-07-17] MEDS: IBUPROFEN 600 MG TAB PO PRN ×2 (08:48→15:53)
[2020-07-17 09:12] VITALS: RESP 16
[2020-07-17] MEDS: LACTATED RINGERS 1,000 ML IV SCH ×2 (17:10→17:11)
[2020-07-18] MEDS: IBUPROFEN 600 MG TAB PO PRN ×2 (00:16→08:01)
[2020-07-18] MEDS ORDERED: HYDROcodone/APAP 7.5-325MG 1 EACH TAB PO PRN (00:25)
[2020-07-18] MEDS: HYDROcodone/APAP 5-325MG 1 EACH TAB PO PRN ×2 (04:25→10:27)
--- NOTE | 2020-07-18 07:13 | P.DS ---
Providers Date of admission: 07/16/20 01:47 Expected date of discharge: 07/18/20 Attending physician: Claire Nelson Primary care physician: Stated None Hospital Course: This is a 25-year-old female 3 para 2001 EDC 07/28/2020 at 30 2/7 weeks' gestation. Patient had 2 previous sections and also reports undesired fertility. She was scheduled for section on 07/22/2020, but presented with spontaneous amniorrhexis. The decision was made therefore to proceed with repeat low transverse section. is remarkable for rubella status immune, blood type A-, group B strep cultures negative please see d ictated history and physical for details. Patient also has a history of gestational diabetes, managed on diet control. Blood sugar on admission was 80. Patient underwent a repeat low transverse section with tubal ligation. She gave to a liveborn male with scores of 9 and 9 at one and 5 minutes respectively. Infant weighed 8 lbs. 2 oz. or 3680 g. There was an estimated blood loss recorded of 400 mL's. Please see dictated operative note for details. This morning the patient is doing well. She is voiding, ambulating, passing flatus without difficulty. Vital signs are stable and she is afebrile. Fundus is firm and in the midline, symmetric and 18 week size. Extremities are negative for edema. Breast-feeding is going well. infant has been circumcised. The patient's incision is clean and dry, intact, Steri-Strips applied. She is judged to be in very good condition for discharge home. Patient will follow-up with me in the office in 2 weeks. She is reminded no intercourse, tampons or douching. She will use [id number] Advil or Aleve, or Motrin as needed for pain. She will call with any fevers shakes or chills, foul smelling or copious lochia, with the passage of large blood clots, with any pain not alleviated by [id number] products, or indeed with any concerns. infant will follow-up with plant engineering supervisor as per recommendations. Assessment: Doing well postoperative day number to Patient Condition at Discharge: Good Plan - Discharge Summary Discharge Rx Participant: No New Discharge Prescriptions: No Action 78/Iron/Folate 1/Dha [Prenate Dha Softgel] 1 each PO DAILY Discharge Medication List 78/Iron/Folate 1/Dha [Prenate Dha Softgel] 1 each PO DAILY 02/02/20 [History] Follow up Appointment(s)/Referral(s): Claire Nelson MD [STAFF PHYSICIAN] - 2 Weeks Discharge Disposition: HOME SELF-CARE
[2020-07-18 08:14] VITALS: BP 123/73; PULSE 103; TEMP 98.4
== END 2020-07-18 10:50 | disposition home or self-care (01) | DRG 785 ==
LOC: FBPOP 01:37 → 4FBP 01:47
PROVIDERS: ADMIT Obstetrics & Gynecology; ATTEND Obstetrics & Gynecology
PROC: 0UL70CZ Occlusion of Bilateral Fallopian Tubes with Extraluminal Device, Open Approach (ICD-10-PCS; principal; 2020-07-16 06:30)
PROC: 10D00Z1 Extraction of Products of Conception, Low, Open Approach (ICD-10-PCS; principal; 2020-07-16 06:30)
DX: O34.211 Maternal care for low transverse scar from previous cesarean delivery (principal); O75.82 Onset (spontaneous) of labor after 37 completed weeks of gestation but before 39 completed weeks gestation, with delivery by (planned) cesarean section; N85.8 Other specified noninflammatory disorders of uterus; O99.72 Diseases of the skin and subcutaneous tissue complicating childbirth; L29.9 Pruritus, unspecified; Z30.2 Encounter for sterilization; Z37.0 Single live birth; Z3A.38 38 weeks gestation of pregnancy; Z79.899 Other long term (current) drug therapy; Z87.891 Personal history of nicotine dependence; Z87.442 Personal history of urinary calculi; Z86.69 Personal history of other diseases of the nervous system and sense organs; Z98.890 Other specified postprocedural states; Z86.32 Personal history of gestational diabetes; Z83.3 Family history of diabetes mellitus; Z80.3 Family history of malignant neoplasm of breast
CPT/HCPCS: 85025; 86850; 86900; 86901

== ENCOUNTER 2023-02-14 12:42 | Emergency (ER) | payer BC, OTHER ==
[2023-02-14] MEDS ORDERED: SODIUM CHLORIDE 0.9% 1,000 ML IV STA (12:58)
[2023-02-14] MEDS ORDERED: ACETAMINOPHEN TAB 500 MG TAB PO STA (13:00)
[2023-02-14] MEDS ORDERED: diphenhydrAMINE 50 MG/ML 1 ML VIAL IVP STA (13:01)
[2023-02-14] MEDS ORDERED: METOCLOPRAMIDE 5 MG/ML 2 ML VIAL IVP STA (13:01)
--- NOTE | 2023-02-14 13:14 | ED ---
General Adult HPI - General Chief complaint: Headache Stated complaint: headache, pain Time Seen by Provider: 02/14/23 12:48 Source: patient, RN notes reviewed, old records reviewed Mode of arrival: ambulatory Limitations: no limitations - History of Present Illness Initial comments: Patient is a 28-year-old female with past medical history remarkable for kidney stones who presents emergency Department with her mother over multi-day history of headaches, as well as possible fevers. There is day 3 of symptoms. Also has nausea, generalized body aches including some paraspinal back and neck pain. Patient is also complaining of left sided flank pain. States does somewhat radiate around her left flank. Endorses some nausea as well. States she feels dehydrated. Attempted to take Motrin last night with some relief in her symptoms returned today. Has not been taking any other medications. Also states she has generalized weakness. States her eyes feel heavy. Is complaining of a typical headache for herself that is not the most severe hea dache of her life. States it is located over the right side of her head. Did improve with the Motrin last night. Uncertain what is causing her symptoms. No known sick contacts. Presents for further evaluation at this time. - Related Data Home Medications Medication Instructions Recorded Confirmed 78/Iron/Folate 1/Dha 1 each PO DAILY 02/02/20 07/16/20 [Prenate Dha Softgel] Previous Rx's Medication Instructions Recorded Ciprofloxacin HCl [Cipro] 500 mg PO Q12HR 5 Days #10 tab 02/14/23 Allergies Allergy/AdvReac Type Severity Reaction Status Date / Time No Known Allergies Allergy Verified 02/14/23 12:46 Review of Systems ROS Statement: Those systems with pertinent positive or pertinent negative responses have been documented in the HPI. Review of Systems: CONST: Endorses fever EYES: Denies blurry vision ENT: Denies Nasal congestion C/V: Denies Chest pain RESP: Denies shortness of breath GI: Endorses left flank pain : Denies dysuria SKIN: Denies rash. MSK: Endorses generalized body aches and pains NEURO: Denies headache ROS Other: All systems not noted in ROS Statement are negative. Past Medical History Past Medical History: No Reported History Additional Past Medical History / Comment(s): gestational diabetes History of Any Multi-Drug Resistant Organisms: None Reported Past Surgical History: Section Additional Past Surgical History / Comment(s): ear tubes as an infant Past Anesthesia/Blood Transfusion Reactions: No Reported Reaction Past Psychological History: No Psychological Hx Reported Smoking Status: Never smoker Past Alcohol Use History: None Reported Past Drug Use History: None Reported - Past Family History Mother Family Medical History: Cancer, Diabetes Mellitus Additional Family Medical History / Comment(s): breast cancer Sister(s) Family Medical History: Diabetes Mellitus Additional Family Medical History / Comment(s): gestational diabetes General Exam - General Exam Comments Initial Comments: General: Appears in mild distress. Febrile. HEAD: Normal with no signs of head trauma. EYES: PERRLA, EOMI, conjunctiva normal, no discharge. ENT: Hearing grossly intact, normal oropharynx. Mildly dry mucous membranes RESPIRATORY: Clear breath sounds bilaterally. No wheezes, rales, or rhonchi. No hypoxia. No increased work of breathing. C/V: Tachycardic with regular rhythm. S1 and S2 auscultated, no edema, peripheral pulses 2+ and intact throughout ABD: Abd is soft, nontender, nondistended. No guarding. No peritoneal signs. Left-sided CVA tenderness to percussion. EXT: Normal range of motion, no obvious deformity. Left flank tenderness to p alpation. Paraspinal muscle tenderness to palpation of the lower lumbar spine, as well as left-sided cervical spine. SKIN: No rashes or lesions observed on exposed skin. NEURO: Alert and oriented x 4. Cranial nerves II-XII intact. No focal sensory deficits were generalized nonspecific weakness in all 4 extremities. Limitations: no limitations Course Vital Signs 02/14/23 02/14/23 12:43 15:05 Temperature 101 F H 100.5 F H Pulse Rate 118 H 105 H Respiratory 20 18 Rate Blood Pressure 120/81 119/71 O2 Sat by Pulse 98 98 Oximetry Medical Decision Making - Medical Decision Making Was pt. sent in by a medical professional or institution (, PA, CLINICAL TRIALS NURSE, urgent care, hospital, or intermediate...) When possible be specific @ -No Did you speak to anyone other than the patient for history (EMS, parent, family, police, friend...)? What history was obtained from this source @ -No Did you review nursing and triage notes (agree or disagree)? Why? @ -I reviewed and agree with nursing and triage notes Were old charts reviewed (outside hosp., previous admission, EMS record, old EKG, old radiological studies, urgent care reports/EKG's, intermediate records)? Report findings @ -No old charts were reviewed Differential Diagnosis (chest pain, altered mental status, abdominal pain women, abdominal pain men, vaginal bleeding, weakness, fever, dyspnea, syncope, headache, dizziness, GI bleed, back pain, seizure, CVA, palpatations, mental health, musculoskeletal)? @ -Differential Fever: Pneumonia, viral URI, endocarditis, myocarditis, pericarditis, otitis, si nusitis, peritonsillar Abscess, retropharyngeal Abscess, epiglottitis, peritonitis, appendicitis, Miriam cystitis, diverticulitis, hepatitis, colitis, UTI, PID, TOA, pyelonephritis, prostatitis, epididymitis, meningitis, encephalitis, pulmonary embolism, CVA, thyroid storm, pancreatitis, adrenal riley is, cavernous sinus thrombosis, this is not meant to be an all-inclusive list. EKG interpreted by me (3pts min.). @ -None done X-rays interpreted by me (1pt min.). @ -Chest x-ray shows no obvious acute process. KUB x-ray shows no obvious acute process. CT interpreted by me (1pt min.). @ -None done U/S interpreted by me (1pt. min.). @ -Ultrasound reveals no obvious obstructive uropathy or evidence of hydronephrosis. Interpreted by radiology. What testing was considered but not performed or refused? (CT, X-rays, U/S, labs)? Why? @ -Considered CT imaging of the brain for her headache, however I low suspicion this is a bleed or other acute intracranial process. We will defer until w orkup and reevaluation, which were both normal and patient is feeling improved. This was deferred after joint decision making with the patient. CT abdomen and pelvis was also deferred after joint decision making with the patient as patient's symptoms have resolved. Appear she is UTI. No evidence of kidney stone on ultrasound or x-ray. What meds were considered but not given or refused? Why? @ -None Did you discuss the management of the patient with other professionals (professionals i.e. , PA, CLINICAL TRIALS NURSE, lab, RT, psych nurse, social secretary, agricultural scientist, teacher, disability hearing officer, window caser)? Give summary @ -No Was smoking cessation discussed for >3mins.? @ -No Was critical care preformed (if so, how long)? @ -No Were there social determinants of health that impacted care today? How? (Homelessness, low income, unemployed, alcoholism, drug addiction, transportation, low edu. Level, literacy, decrease access to med. care, long-term, rehab)? @ -No Was there de-escalation of care discussed even if they declined (Discuss DNR or withdrawal of care, Hospice)? DNR status @ -No What co-morbidities impacted this encounter? (DM, HTN, Smoking, COPD, CAD, Can cer, CVA, ARF, Chemo, Hep., AIDS, mental health diagnosis, sleep apnea, morbid obesity)? @ -None Was patient admitted / discharged? Hospital course, mention meds given and route, prescriptions, significant lab abnormalities, going to OR and other pertinent info. @ -Based on the patient's presentation and physical exam, she presents with aug rile illness. We will obtain generalized febrile workup at this time. She will be symptomatically treated with IV fluids, Reglan Benadryl, as well as Tylenol. She'll be tested for Covid in fluids as well as strep pharyngitis. Patient will receive a chest and abdominal x-ray as well as ultrasound of the kidneys to evaluate for possible kidney stone due to the flank pain. Patient was in agreement with this plan. Vital signs are significant for a fever as well as corresponding tachycardia. Tachycardia likely secondary to the fever. Patient is receiving antipyretic acetaminophen for treatment. We'll reevaluate afterwards. Patient's imaging is unremarkable. Patient's laboratory studies are remarkable for findings concerning for UTI with leukocytosis of 13, as well as 4+ ketones, as well as positive nitrites and leukocyte esterase with a significant number of WBCs and bacteria present. Viral swabs are negative. Strep throat swab negative. On reevaluation, patient is feeling much improved. Fevers improved. Symptoms including abdominal pain and flank pain have resolved. We did discuss CT imaging at this time of the belly or brain, however as the patient's mental status, and strength and weakness are back to normal baseline, as well as absence of abdominal pain we both agreed that this appropriate to defer this at this time. Strict return precautions were discussed. Due to her flank pain, did place her on ciprofloxacin twice a day to cover for possible pyelonephritis. She will receive a dose of Rocephin as well. Discussed antipyretic therapy using [id number] medications at home. Patient was in agreement with this plan. She'll be discharged home at this time. We did discuss the likelihood of this being a kidney stone in both agreed of low likelihood as there is no ultrasound or x-ray evidence of this. However strict return precautions were discussed regarding this. I will provide the patient with a prescription for ciprofloxacin. I instructed the patient to follow up with their PCP in the next 1-3 days. I explained that the patient should return to the emergency department if they experience any worsening symptoms. Strict return precautions were discussed with the patient. The patient expressed understanding of these instructions. I answered all questions that the patient had. The patient was discharged home in good condition with their prescriptions and follow up information. Undiagnosed new problem with uncertain prognosis? @ -No Drug Therapy requiring intensive monitoring for toxicity (Heparin, Nitro, Insulin, Cardizem)? @ -No Were any procedures done? @ -No Diagnosis/symptom? @ -UTI, headache, fever Acute, or Chronic, or Acute on Chronic? @ -Acute Uncomplicated (without systemic symptoms) or Complicated (systemic symptoms)? @ -Complicated Side effects of treatment? @ -none Exacerbation, Progression, or Severe Exacerbation] @ -no Poses a threat to life or bodily function? @ -no - Lab Data Result diagrams: 02/14/23 13:03 02/14/23 13:03 Lab Results 02/14/23 02/14/23 02/14/23 Range/Units 13:03 13:03 13:03 WBC 13.1 H (3.8-10.6) k/uL RBC 5.35 (3.80-5.40) m/uL Hgb 15.0 (11.4-16.0) gm/dL Hct 44.8 (34.0-46.0) % MCV 83.6 (80.0-100.0) fL MCH 28.1 (25.0-35.0) pg MCHC 33.6 (31.0-37.0) g/dL RDW 13.7 (11.5-15.5) % Plt Count 251 (150-450) k/uL MPV 8.0 Neutrophils % 87 % Lymphocytes % 5 % Monocytes % 5 % Eosinophils % 1 % Basophils % 1 % Neutrophils # 11.4 H (1.3-7.7) k/uL Lymphocytes # 0.7 L (1.0-4.8) k/uL Monocytes # 0.7 (0-1.0) k/uL Eosinophils # 0.1 (0-0.7) k/uL Basophils # 0.1 (0-0.2) k/uL PT 11.1 (9.0-12.0) sec INR 1.1 (<1.2) APTT 24.5 (22.0-30.0) sec Sodium (137-145) mmol/L Potassium (3.5-5.1) mmol/L Chloride (98-107) mmol/L Carbon Dioxide (22-30) mmol/L Anion Gap mmol/L BUN (7-17) mg/dL Creatinine (0.52-1.04) mg/dL Est GFR (CKD-EPI)AfAm (>60 ml/min/1.73 sqM) Est GFR (CKD-EPI)NonAf (>60 ml/min/1.73 sqM) Glucose (74-99) mg/dL Plasma Lactic Acid Hank (0.7-2.0) mmol/L Calcium (8.4-10.2) mg/dL Total Bilirubin (0.2-1.3) mg/dL AST (14-36) U/L ALT (4-34) U/L Alkaline Phosphatase (38-126) U/L Total Protein (6.3-8.2) g/dL Albumin (3.5-5.0) g/dL Amylase (30-110) U/L Lipase (23-300) U/L HCG, Qual Urine Color Yellow Urine Appearance Cloudy H (Clear) Urine pH 6.5 (5.0-8.0) Ur Specific [place] 1.017 (1.001-1.035) Urine Protein 1+ H (Negative) Urine Glucose (UA) Negative (Negative) Urine Ketones 4+ H (Negative) Urine Blood Moderate H (Negative) Urine Nitrite Positive H (Negative) Urine Bilirubin Negative (Negative) Urine Urobilinogen 2.0 (<2.0) mg/dL Ur Leukocyte Esterase Large H (Negative) Urine RBC 45 H (0-5) /hpf Urine WBC >182 H (0-5) /hpf Urine WBC Clumps Few H (None) /hpf Ur Squamous Epith Cells 17 H (0-4) /hpf Urine Bacteria Moderate H (None) /hpf Urine Mucus Rare H (None) /hpf Influenza Type A (PCR) (Not Detectd) Influenza Type B (PCR) (Not Detectd) RSV (PCR) (Not Detectd) SARS-CoV-2 (PCR) (Not Detectd) Group A Strep (PCR) (Not Detectd) 02/14/23 02/14/23 02/14/23 Range/Units 13:03 13:03 13:03 WBC (3.8-10.6) k/uL RBC (3.80-5.40) m/uL Hgb (11.4-16.0) gm/dL Hct (34.0-46.0) % MCV (80.0-100.0) fL MCH (25.0-35.0) pg MCHC (31.0-37.0) g/dL RDW (11.5-15.5) % Plt Count (150-450) k/uL MPV Neutrophils % % Lymphocytes % % Monocytes % % Eosinophils % % Basophils % % Neutrophils # (1.3-7.7) k/uL Lymphocytes # (1.0-4.8) k/uL Monocytes # (0-1.0) k/uL Eosinophils # (0-0.7) k/uL Basophils # (0-0.2) k/uL PT (9.0-12.0) sec INR (<1.2) APTT (22.0-30.0) sec Sodium 133 L (137-145) mmol/L Potassium 3.9 (3.5-5.1) mmol/L Chloride 100 (98-107) mmol/L Carbon Dioxide 18 L (22-30) mmol/L Anion Gap 15 mmol/L BUN 10 (7-17) mg/dL Creatinine 0.76 (0.52-1.04) mg/dL Est GFR (CKD-EPI)AfAm >90 (>60 ml/min/1.73 sqM) Est GFR (CKD-EPI)NonAf >90 (>60 ml/min/1.73 sqM) Glucose 88 (74-99) mg/dL Plasma Lactic Acid Hank 1.2 (0.7-2.0) mmol/L Calcium 9.0 (8.4-10.2) mg/dL Total Bilirubin 1.2 (0.2-1.3) mg/dL AST 19 (14-36) U/L ALT 25 (4-34) U/L Alkaline Phosphatase 94 (38-126) U/L Total Protein 7.6 (6.3-8.2) g/dL Albumin 4.2 (3.5-5.0) g/dL Amylase 67 (30-110) U/L Lipase 66 (23-300) U/L HCG, Qual Not Detected Urine Color Urine Appearance (Clear) Urine pH (5.0-8.0) Ur Specific [place] (1.001-1.035) Urine Protein (Negative) Urine Glucose (UA) (Negative) Urine Ketones (Negative) Urine Blood (Negative) Urine Nitrite (Negative) Urine Bilirubin (Negative) Urine Urobilinogen (<2.0) mg/dL Ur Leukocyte Esterase (Negative) Urine RBC (0-5) /hpf Urine WBC (0-5) /hpf Urine WBC Clumps (None) /hpf Ur Squamous Epith Cells (0-4) /hpf Urine Bacteria (None) /hpf Urine Mucus (None) /hpf Influenza Type A (PCR) Not Detected (Not Detectd) Influenza Type B (PCR) Not Detected (Not Detectd) RSV (PCR) Not Detected (Not Detectd) SARS-CoV-2 (PCR) Not Detected (Not Detectd) Group A Strep (PCR) (Not Detectd) 02/14/23 Range/Units 13:03 WBC (3.8-10.6) k/uL RBC (3.80-5.40) m/uL Hgb (11.4-16.0) gm/dL Hct (34.0-46.0) % MCV (80.0-100.0) fL MCH (25.0-35.0) pg MCHC (31.0-37.0) g/dL RDW (11.5-15.5) % Plt Count (150-450) k/uL MPV Neutrophils % % Lymphocytes % % Monocytes % % Eosinophils % % Basophils % % Neutrophils # (1.3-7.7) k/uL Lymphocytes # (1.0-4.8) k/uL Monocytes # (0-1.0) k/uL Eosinophils # (0-0.7) k/uL Basophils # (0-0.2) k/uL PT (9.0-12.0) sec INR (<1.2) APTT (22.0-30.0) sec Sodium (137-145) mmol/L Potassium (3.5-5.1) mmol/L Chloride (98-107) mmol/L Carbon Dioxide (22-30) mmol/L Anion Gap mmol/L BUN (7-17) mg/dL Creatinine (0.52-1.04) mg/dL Est GFR (CKD-EPI)AfAm (>60 ml/min/1.73 sqM) Est GFR (CKD-EPI)NonAf (>60 ml/min/1.73 sqM) Glucose (74-99) mg/dL Plasma Lactic Acid Hank (0.7-2.0) mmol/L Calcium (8.4-10.2) mg/dL Total Bilirubin (0.2-1.3) mg/dL AST (14-36) U/L ALT (4-34) U/L Alkaline Phosphatase (38-126) U/L Total Protein (6.3-8.2) g/dL Albumin (3.5-5.0) g/dL Amylase (30-110) U/L Lipase (23-300) U/L HCG, Qual Urine Color Urine Appearance (Clear) Urine pH (5.0-8.0) Ur Specific [place] (1.001-1.035) Urine Protein (Negative) Urine Glucose (UA) (Negative) Urine Ketones (Negative) Urine Blood (Negative) Urine Nitrite (Negative) Urine Bilirubin (Negative) Urine Urobilinogen (<2.0) mg/dL Ur Leukocyte Esterase (Negative) Urine RBC (0-5) /hpf Urine WBC (0-5) /hpf Urine WBC Clumps (None) /hpf Ur Squamous Epith Cells (0-4) /hpf Urine Bacteria (None) /hpf Urine Mucus (None) /hpf Influenza Type A (PCR) (Not Detectd) Influenza Type B (PCR) (Not Detectd) RSV (PCR) (Not Detectd) SARS-CoV-2 (PCR) (Not Detectd) Group A Strep (PCR) NOT DETECTED (Not Detectd) Disposition Clinical Impression: Headache, Fever, UTI (urinary tract infection) Disposition: HOME SELF-CARE Condition: Good Instructions (If sedation given, give patient instructions): Urinary Tract Infection in Women (ED), Acute Headache (ED) Prescriptions: Ciprofloxacin HCl [Cipro] 500 mg PO Q12HR 5 Days #10 tab Is patient prescribed a controlled substance at d/c from ED?: No Referrals: Nasir Ramos [Primary Care Provider] - 1-2 days Time of Disposition: 14:42
[2023-02-14 13:37] LABS: ALT 25 U/L (4-34); AST 19 U/L (14-36); African American GFR (CKD) >90 (>60 ml/min/1.73 sqM); Albumin 4.2 g/dL (3.5-5.0); Alkaline Phosphatase 94 U/L (38-126); Amylase 67 U/L (30-110); Anion Gap 15 mmol/L; Blood Urea Nitrogen 10 mg/dL (7-17); Carbon Dioxide 18 mmol/L (22-30); Chloride 100 mmol/L (98-107); Glucose 88 mg/dL (74-99); Lipase 66 U/L (23-300); Non-African American GFR(CKD) >90 (>60 ml/min/1.73 sqM); Potassium 3.9 mmol/L (3.5-5.1); Sodium 133 mmol/L (137-145); Total Bilirubin 1.2 mg/dL (0.2-1.3); Total Protein 7.6 g/dL (6.3-8.2)
[2023-02-14 13:47] LABS: INR 1.1 (<1.2); Partial Thromboplastin Time 24.5 sec (22.0-30.0); Prothrombin Time 11.1 sec (9.0-12.0)
[2023-02-14 13:55] LABS: Appearance,Urine Cloudy (Clear); Bacteria,Urine Moderate /hpf; Basophils # (A) 0.1 k/uL (0-0.2); Basophils % (A) 1 %; Bilirubin,Urine Negative (Negative); Blood,Urine Moderate (Negative); Color,Urine Yellow; Eosinophils # (A) 0.1 k/uL (0-0.7); Eosinophils % (A) 1 %; Glucose,Urine (UA) Negative (Negative); HCT 44.8 % (34.0-46.0); Ketones,Urine 4+ (Negative); Leukocyte Esterase,Urine Large (Negative); Lymphocytes # (A) 0.7 k/uL (1.0-4.8); Lymphocytes % (A) 5 %; MCH 28.1 pg (25.0-35.0); MCHC 33.6 g/dL (31.0-37.0); MCV 83.6 fL (80.0-100.0); Monocytes # (A) 0.7 k/uL (0-1.0); Monocytes % (A) 5 %; Mucus,Urine Rare /hpf; Neutrophils # (A) 11.4 k/uL (1.3-7.7); Neutrophils % (A) 87 %; Nitrite,Urine Positive (Negative); PH, Urine 6.5 (5.0-8.0); Platelet Count 251 k/uL (150-450); Protein,Urine 1+ (Negative); RBC 5.35 m/uL (3.80-5.40); RBC,Urine 45 /hpf (0-5); RDW 13.7 % (11.5-15.5); Specific Gravity,Urine 1.017 (1.001-1.035); Squamous Epithelial Cell,Urine 17 /hpf (0-4); WBC 13.1 k/uL (3.8-10.6); WBC,Urine >182 /hpf (0-5)
--- NOTE | 2023-02-14 13:58 | XR ---
EXAMINATION TYPE: XR chest 1V portable DATE OF EXAM: 02/14/2023 1:53 PM COMPARISON: None TECHNIQUE: XR chest 1V portable Portable AP radiograph of the chest. CLINICAL INDICATION:Female, 28 years old with history of abdominal pain; FINDINGS: Lungs/Pleura: There is no evidence of pleural effusion, focal consolidation, or pneumothorax. Pulmonary vascularity: Unremarkable. Heart/mediastinum: Cardiomediastinal silhouette is unremarkable. Musculoskeletal: No acute osseous pathology. IMPRESSION: No acute cardiopulmonary disease/process.
--- NOTE | 2023-02-14 13:59 | XR ---
EXAMINATION TYPE: XR KUB DATE OF EXAM: 02/14/2023 COMPARISON: NONE HISTORY: Pain TECHNIQUE: Single supine KUB image of the abdomen is obtained FINDINGS: Small bowel demonstrates no evidence for dilatation or air fluid levels. Gas and fecal material is seen in non-distended colon. No unusual calcifications. Bilateral tubal ligation clips. The lung bases are clear. The osseous structures are intact. IMPRESSION: Overall nonobstructive bowel gas pattern.
[2023-02-14 14:23] LABS: HCG,Qualitative Serum Not Detected
--- NOTE | 2023-02-14 14:36 | US ---
EXAMINATION TYPE: US kidneys/renal and bladder DATE OF EXAM: 02/14/2023 COMPARISON: NONE CLINICAL INDICATION: Female, 28 years old with history of left flank pain. eval for stone/hydronephro sis; Left flank pain EXAM MEASUREMENTS: Right Kidney: 11.3 x 4.3 x 4.8 cm Left Kidney: 10.5 x 4.4 x 4.1 cm Right Kidney: no evidence of hydronephrosis or mass Left Kidney: no evidence of hydronephrosis or mass Bladder: appears wnl There is no evidence for hydronephrosis at this point in time. No nephrolithiasis is seen. No tabitha s are identified. The urinary bladder is anechoic. Bilateral ureteral jets are seen. IMPRESSION: No evidence for obstructive uropathy.
[2023-02-14] MEDS ORDERED: cefTRIAXone IN SWFI 1,000 MG/10 ML SYRINGE IVP STA (14:46)
[2023-02-14 15:05] VITALS: BP 119/71; PULSE 105; RESP 18; TEMP 100.5
[2023-02-14] MEDS ORDERED: IBUPROFEN 800 MG TAB PO STA (15:20)
== END 2023-02-14 15:31 | disposition home or self-care (01) ==
LOC: EC 12:42
DX: N39.0 Urinary tract infection, site not specified (principal); B96.20 Unspecified Escherichia coli [E. coli] as the cause of diseases classified elsewhere; R50.9 Fever, unspecified; R51.9 Headache, unspecified; Z20.822 Contact with and (suspected) exposure to COVID-19
CPT/HCPCS: 36415; 87651; 80053; 82150; 83605; 83690; 85025; 85610; 85730; 81001; 84703; 87086; 87077; 87186; 87636; 71045; 74018; 76770; 99284; 96374; 96375 ×2; 96361; J1200; J2765; J0696

== ENCOUNTER 2024-01-03 16:08 | Inpatient (IN) | payer BC, OTHER ==
--- NOTE | 2024-01-03 16:35 | ED ---
Female Urogenital HPI - General Source: patient, RN notes reviewed Mode of arrival: ambulatory Limitations: no limitations <Mary Caraballo - Last Filed: 01/03/24 19:04> - General Source: patient, RN notes reviewed Mode of arrival: ambulatory Limitations: no limitations <Eva Mccain - Last Filed: 01/03/24 23:17> - General Chief complaint: Back Pain/Injury Stated complaint: UTI, Kidney stone Time Seen by Provider: 01/03/24 16:32 - History of Present Illness Initial comments: 28-year-old female presented to the ER with a chief complaint of left flank pain. Patient has a past medical history significant of frequent UTIs and a distant history of kidney stones. Patient reports around 5 am she started experiencing left flank pain and nausea. Patient reports she was seen at [facility] this morning and diagnosed with a kidney stone and UTI. Patient received IV 1 g Rocephin prior to discharge. Patient states she was told to follow-up with urology. She is concerned she may go septic due to the stone and UTI. She denies any fevers, chest pain, shortness of breath, urinary complaints, constipation/diarrhea or peripheral edema. (Mary Caraballo) - Related Data Home Medications Medication Instructions Recorded Confirmed No Known Home Medications 01/03/24 01/03/24 Allergies Allergy/AdvReac Type Severity Reaction Status Date / Time No Known Allergies Allergy Verified 01/03/24 20:22 Review of Systems ROS Other: All systems not noted in ROS Statement are negative. <Mary Caraballo - Last Filed: 01/03/24 19:04> ROS Other: All systems not noted in ROS Statement are negative. <Eva Mccain - Last Filed: 01/03/24 23:17> ROS Statement: Those systems with pertinent positive or pertinent negative responses have been documented in the HPI. Past Medical History Past Medical History: No Reported History Additional Past Medical History / Comment(s): gestational diabetes History of Any Multi-Drug Resistant Organisms: None Reported Past Surgical History: Section Additional Past Surgical History / Comment(s): ear tubes as an Past Anesthesia/Blood Transfusion Reactions: No Reported Reaction Past Psychological History: No Psychological Hx Reported Smoking Status: Never smoker Past Alcohol Use History: None Reported Past Drug Use History: None Reported - Past Family History Mother Family Medical History: Cancer, Diabetes Mellitus Additional Family Medical History / Comment(s): breast cancer Sister(s) Family Medical History: Diabetes Mellitus Additional Family Medical History / Comment(s): gestational diabetes <Mary Caraabllo - Last Filed: 01/03/24 19:04> General Exam General appearance: alert, in no apparent distress Respiratory exam: Present: normal lung sounds bilaterally. Absent: respiratory distress, wheezes, rales, rhonchi, stridor Cardiovascular Exam: Present: normal rhythm, tachycardia, normal heart sounds GI/Abdominal exam: Present: soft, normal bowel sounds. Absent: distended, tenderness, guarding, rebound, rigid Back exam: Present: CVA tenderness (L) Neurological exam: Present: alert, oriented X3, CN II-XII intact Skin exam: Present: warm, dry, intact, normal color, diaphoretic (mild). Absent : rash <Mary Caraballo - Last Filed: 01/03/24 19:04> - General Exam Comments Initial Comments: Visual Physical Exam Vital signs reviewed General: Well-appearing, nontoxic, no acute distress. Head: Normocephalic, atraumatic Eyes: PERRLA, EOMI ENT: Airway patent Chest: Nonlabored breathing Skin: No visual rash, normal skin tone Neuro: Alert and oriented 3 Musculoskeletal: No gross abnormalities (Mary Caraballo) Course Vital Signs 01/03/24 01/03/24 01/03/24 16:44 18:58 20:53 Temperature 98.7 F Pulse Rate 96 100 118 H Respiratory 18 18 18 Rate Blood Pressure 127/69 139/99 120/68 O2 Sat by Pulse 99 100 100 Oximetry Medical Decision Making - Lab Data Result diagrams: 01/03/24 17:56 <Mary Caraballo - Last Filed: 01/03/24 19:04> - Lab Data Result diagrams: 01/03/24 17:56 01/03/24 17:56 <Eva Mccain - Last Filed: 01/03/24 23:17> - Medical Decision Making I performed the quick note portion of this chart. Electronically signed by Mary Caraballo PA-C Was pt. sent in by a medical professional or institution (SREEKANTH Khan, [employer]CH[employer], urgent care, hospital, or alf...) When possible be specific @ -No Did you speak to anyone other than the patient for history (EMS, parent, family, police, friend...)? What history was obtained from this source @ -No Did you review nursing and triage notes (agree or disagree)? Why? @ -I reviewed and agree with nursing and triage notes Were old charts reviewed (outside hosp., previous admission, EMS record, old EKG, old radiological studies, urgent care reports/EKG's, alf records)? Report findings @ -Yes I reviewed laboratory studies from [facility] from 01-03-2024. Patient had a white blood cell count of 13.4 with a left shift, BUN 13.0, creatinine 1.14, GFR 67.4. Urine analysis significant for 3+ leukocyte esterases with positive nitrates. CT abdomen pelvis without contrast remarkable for a obstructing left renal calculus in the proximal ureter measuring 8.3 mm with moderate left hydronephrosis and perinephric stranding. Patient received 1 g IV Rocephin prior to discharge. Patient prescribed Keflex, Flomax, Percocet, Zofran at discharge. Differential Diagnosis (chest pain, altered mental status, abdominal pain women, abdominal pain men, vaginal bleeding, weakness, fever, dyspnea, syncope, headache, dizziness, GI bleed, back pain, seizure, CVA, palpatations, mental health, musculoskeletal)? @ -Differential Back Pain: Strain, zoster, cauda equina syndrome, epidural abscess, vertebral osteomyelitis, discitis, fracture, subluxation, disc herniation, DJD, spinal stenosis, dissection, AAA, pancreatitis, peptic ulcer disease, pyelonephritis, kidney stone, this is not meant to be an all-inclusive list. EKG interpreted by me (3pts min.). @ -None X-rays interpreted by me (1pt min.). @ -None done CT interpreted by me (1pt min.). @ -None done U/S interpreted by me (1pt. min.). @ -None done What testing was considered but not performed or refused? (CT, X-rays, U/S, labs)? Why? @ -None What meds were considered but not given or refused? Why? @ -None Did you discuss the management of the patient with other professionals (professionals i.e. , PA, DIESEL TRACTOR ENGINE MECHANIC, lab, RT, psych nurse, social service director, backfiller, teacher, morals squad police officer, case consultant)? Give summary @ -No Was smoking cessation discussed for >3mins.? @ -No Was critical care preformed (if so, how long)? @ -No Were there social determinants of health that impacted care today? How? (Homel essness, low income, unemployed, alcoholism, drug addiction, transportation, low edu. Level, literacy, decrease access to med. care, shelter, rehab)? @ -No Was there de-escalation of care discussed even if they declined (Discuss DNR or withdrawal of care, Hospice)? DNR status @ -No What co-morbidities impacted this encounter? (DM, HTN, Smoking, COPD, CAD, Cancer, CVA, ARF, Chemo, Hep., AIDS, mental health diagnosis, sleep apnea, morbid obesity)? @ -None Was patient admitted / discharged? Hospital course, mention meds given and route, prescriptions, significant lab abnormalities, going to OR and other pertinent info. @ -28 year old female presenting to the ER with a chief complaint of left flank pain. Patient seen at [facility] and diagnosed with a 8.3 mm calculus at the proximal ureter with moderate left-sided hydronephrosis and perinephric stranding. Vital signs upon arrival remarkable for a temperature 98.7, heart rate 96, respiratory rate 18, blood pressure 127/69 oxygen saturation 99% on room air. CBC pending. CMP remarkable for sodium 136, BUN 13, creatinine 0.83. Urine hemorrhagic with large blood and leukocyte esterases with <182 white blood cells concerning of infection. Patient received 1 L IV fluids, Zofran and Dilaudid for symptom control in the ER. Patient signed out to Eva Mccain PA-C at shift completion pending CBC results and disposition. (Mary Caraballo) Case signed out to me by Mary Caraballo PA-C, at shift completion pending CBC and disposition. As mentioned above, patient presented to [facility] this morning when she developed left flank pain at approximately 5 AM. She was found to have an 8.3 mm calculus in the left proximal ureter with hydronephrosis. She was given pain medication in the emergency department, but states that after discharge the pain returned and she was unable to manage it at home, prompting her to present to this emergency department. She was given 1 g of ceftriaxone in the emergency department prior to discharge as well. Reports a history of a kidney stones a couple of years ago. CBC demonstrates leukocytosis with a white blood cell count of 14. Urine also notably infected. Urine sent for culture. Blood cultures obtained as well. Case discussed with Dr. Palacio, urology. He was agreeable to admission to medicine for intractable pain related to the kidney stone. Will keep patient n.p.o. after midnight in the event of any intervention. Additional 1g of Ceftriaxone administered, which will be a total of 2g today, given the 1g she had at [facility] earlier. Maintenance fluids initiated as well. Dhara Chin with [facility] accepts the patient for admission to medicine. This case was discussed in detail with the attending ED physician, Dr. Dunn. Presentation, findings, and treatment plan discussed in detail as well. (Eva Mccain) - Lab Data Lab Results 01/03/24 01/03/24 01/03/24 Range/Units 17:56 17:56 17:56 WBC 14.0 H (3.8-10.6) k/uL RBC 5.31 (3.80-5.40) m/uL Hgb 14.8 (11.4-16.0) gm/dL Hct 45.4 (34.0-46.0) % MCV 85.6 (80.0-100.0) fL MCH 27.9 (25.0-35.0) pg MCHC 32.6 (31.0-37.0) g/dL RDW 13.5 (11.5-15.5) % Plt Count 229 (150-450) k/uL MPV 8.2 Neutrophils % (Manual) 94 % Lymphocytes % (Manual) 4 % Monocytes % (Manual) 2 % Neutrophils # (Manual) 13.16 H (1.3-7.7) k/uL Lymphocytes # (Manual) 0.56 L (1.0-4.8) k/uL Monocytes # (Manual) 0.28 (0-1.0) k/uL Nucleated RBCs 0 (0-0) /100 WBC Manual Slide Review Performed Sodium 136 L (137-145) mmol/L Potassium 4.4 (3.5-5.1) mmol/L Chloride 107 (98-107) mmol/L Carbon Dioxide 24 (22-30) mmol/L Anion Gap 5 mmol/L BUN 13 (7-17) mg/dL Creatinine 0.83 (0.52-1.04) mg/dL Est GFR (CKD-EPI)AfAm >90 (>60 ml/min/1.73 sqM) Est GFR (CKD-EPI)NonAf >90 (>60 ml/min/1.73 sqM) Glucose 83 (74-99) mg/dL Plasma Lactic Acid Hank (0.7-2.0) mmol/L Calcium 8.5 (8.4-10.2) mg/dL Total Bilirubin 1.5 H (0.2-1.3) mg/dL AST 19 (14-36) U/L ALT 17 (4-34) U/L Alkaline Phosphatase 64 (38-126) U/L Total Protein 6.6 (6.3-8.2) g/dL Albumin 4.0 (3.5-5.0) g/dL Urine Color Yellow Urine Appearance Turbid H (Clear) Urine pH 6.5 (5.0-8.0) Ur Specific Duncan 1.018 (1.001-1.035) Urine Protein 2+ H (Negative) Urine Glucose (UA) Negative (Negative) Urine Ketones 1+ H (Negative) Urine Blood Large H (Negative) Urine Nitrite Negative (Negative) Urine Bilirubin Negative (Negative) Urine Urobilinogen <2.0 (<2.0) mg/dL Ur Leukocyte Esterase Large H (Negative) Urine RBC 135 H (0-5) /hpf Urine WBC >182 H (0-5) /hpf Urine WBC Clumps Many H (None) /hpf Ur Squamous Epith Cells 7 H (0-4) /hpf Urine Mucus Many H (None) /hpf Urine HCG, Qual (Not Detectd) 01/03/24 01/03/24 Range/Units 17:56 17:56 WBC (3.8-10.6) k/uL RBC (3.80-5.40) m/uL Hgb (11.4-16.0) gm/dL Hct (34.0-46.0) % MCV (80.0-100.0) fL MCH (25.0-35.0) pg MCHC (31.0-37.0) g/dL RDW (11.5-15.5) % Plt Count (150-450) k/uL MPV Neutrophils % (Manual) % Lymphocytes % (Manual) % Monocytes % (Manual) % Neutrophils # (Manual) (1.3-7.7) k/uL Lymphocytes # (Manual) (1.0-4.8) k/uL Monocytes # (Manual) (0-1.0) k/uL Nucleated RBCs (0-0) /100 WBC Manual Slide Review Sodium (137-145) mmol/L Potassium (3.5-5.1) mmol/L Chloride (98-107) mmol/L Carbon Dioxide (22-30) mmol/L Anion Gap mmol/L BUN (7-17) mg/dL Creatinine (0.52-1.04) mg/dL Est GFR (CKD-EPI)AfAm (>60 ml/min/1.73 sqM) Est GFR (CKD-EPI)NonAf (>60 ml/min/1.73 sqM) Glucose (74-99) mg/dL Plasma Lactic Acid Hank 1.0 (0.7-2.0) mmol/L Calcium (8.4-10.2) mg/dL Total Bilirubin (0.2-1.3) mg/dL AST (14-36) U/L ALT (4-34) U/L Alkaline Phosphatase (38-126) U/L Total Protein (6.3-8.2) g/dL Albumin (3.5-5.0) g/dL Urine Color Urine Appearance (Clear) Urine pH (5.0-8.0) Ur Specific Duncan (1.001-1.035) Urine Protein (Negative) Urine Glucose (UA) (Negative) Urine Ketones (Negative) Urine Blood (Negative) Urine Nitrite (Negative) Urine Bilirubin (Negative) Urine Urobilinogen (<2.0) mg/dL Ur Leukocyte Esterase (Negative) Urine RBC (0-5) /hpf Urine WBC (0-5) /hpf Urine WBC Clumps (None) /hpf Ur Squamous Epith Cells (0-4) /hpf Urine Mucus (None) /hpf Urine HCG, Qual Not Detected (Not Detectd) Disposition <Mary Caraballo - Last Filed: 01/03/24 19:04> <Eva Mccain - Last Filed: 01/03/24 23:17> Clinical Impression: Left ureteral calculus, UTI (urinary tract infection) Disposition: ADMITTED IP TO THIS HOSP
[2024-01-03] MEDS: SODIUM CHLORIDE 0.9% 1,000 ML IV STA ×2 (18:04→19:50)
[2024-01-03] MEDS: ONDANSETRON 4 MG/2 ML VIAL IVP STA (18:06)
[2024-01-03 18:38] LABS: Appearance,Urine Turbid (Clear); Bilirubin,Urine Negative (Negative); Blood,Urine Large (Negative); Color,Urine Yellow; Glucose,Urine (UA) Negative (Negative); Ketones,Urine 1+ (Negative); Leukocyte Esterase,Urine Large (Negative); Mucus,Urine Many /hpf; Nitrite,Urine Negative (Negative); PH, Urine 6.5 (5.0-8.0); Protein,Urine 2+ (Negative); RBC,Urine 135 /hpf (0-5); Specific Gravity,Urine 1.018 (1.001-1.035); Squamous Epithelial Cell,Urine 7 /hpf (0-4); Urobilinogen,Urine <2.0 mg/dL (<2.0); WBC,Urine >182 /hpf (0-5)
[2024-01-03 18:40] LABS: ALT 17 U/L (4-34); AST 19 U/L (14-36); African American GFR (CKD) >90 (>60 ml/min/1.73 sqM); Alkaline Phosphatase 64 U/L (38-126); Anion Gap 5 mmol/L; Blood Urea Nitrogen 13 mg/dL (7-17); Calcium 8.5 mg/dL (8.4-10.2); Carbon Dioxide 24 mmol/L (22-30); Chloride 107 mmol/L (98-107); Glucose 83 mg/dL (74-99); Non-African American GFR(CKD) >90 (>60 ml/min/1.73 sqM); Potassium 4.4 mmol/L (3.5-5.1); Sodium 136 mmol/L (137-145); Total Bilirubin 1.5 mg/dL (0.2-1.3); Total Protein 6.6 g/dL (6.3-8.2)
[2024-01-03] MEDS: HYDROmorphone 0.5 MG/0.5 ML SYRINGE IVP STA (18:59)
[2024-01-03 19:18] LABS: HCT 45.4 % (34.0-46.0); HGB 14.8 gm/dL (11.4-16.0); MCH 27.9 pg (25.0-35.0); MCHC 32.6 g/dL (31.0-37.0); MCV 85.6 fL (80.0-100.0); Mean Platelet Volume 8.2; Platelet Count 229 k/uL (150-450); RBC 5.31 m/uL (3.80-5.40); RDW 13.5 % (11.5-15.5)
[2024-01-03] MEDS ORDERED: HYDROmorphone 0.5 MG/0.5 ML SYRINGE IVP PRN (19:43)
[2024-01-03] MEDS ORDERED: ACETAMINOPHEN TAB 325 MG TAB PO PRN (19:43)
[2024-01-03] MEDS ORDERED: NALOXONE 0.4 MG/ML 1 ML VIAL IV PRN (19:43)
[2024-01-03 19:46] LABS: Lymphocytes # (M) 0.56 k/uL (1.0-4.8); Monocytes # (M) 0.28 k/uL (0-1.0); Neutrophils # (M) 13.16 k/uL (1.3-7.7); Neutrophils % (M) 94 %; Nucleated Red Blood Cells 0 /100 WBC (0-0); Total Cells Counted 100
[2024-01-03] MEDS: cefTRIAXone IN SWFI 1,000 MG/10 ML SYRINGE IVP STA ×2 (19:50→19:55)
[2024-01-03] MEDS: KETOROLAC 15 MG/ML 1 ML VIAL IVP STA (19:53)
[2024-01-03] MEDS: SODIUM CHLORIDE 0.9% 1,000 ML IV SCH (19:56)
[2024-01-03] MEDS: HYDROmorphone 1 MG/ML 1 ML SYRINGE IVP PRN (21:56)
--- NOTE | 2024-01-04 06:50 | P.GSCN ---
History of Present Illness Consult date: 01/04/24 History of present illness: 28 yo female admitted with an obstructing 8 mm left ureteral stone and a uti. SHe was at [facility] yesterday for the same stone and was d/c home with pain meds and antibioticsas to f/u with urology as they have no urologist. Her pain persisted so she came to [facility] and was admitted for pain control and urological consultation. SHe has a history of utis and a remote history of stones. Her urine is inflamed and she is having pain requiring narcotics. Her tmax is 99.7 Her WBC are 14k. Review of Systems All systems: negative - Constitutional Denies fever, Denies weight loss - EENT Eyes: denies blurred vision Ears, nose, mouth and throat: Denies dysphagia - Cardiovascular Denies chest pain, Denies shortness of breath - Respiratory Denies cough, Denies 7 - Gastrointestinal Reports as per HPI - Genitourinary Genitourinary: Denies dysuria, Denies hematuria - Integumentary Denies rash, Denies unusual bruising - Neurological Denies headaches, Denies syncope - Hematologic/Lymphatic Denies easy bleeding, Denies easy bruising Past Medical History Past Medical History: No Reported History Additional Past Medical History / Comment(s): gestational diabetes History of Any Multi-Drug Resistant Organisms: None Reported Past Surgical History: Section, Tubal Ligation Additional Past Surgical History / Comment(s): ear tubes as an , 3 csections Past Anesthesia/Blood Transfusion Reactions: No Reported Reaction Past Psychological History: No Psychological Hx Reported Smoking Status: Never smoker Past Alcohol Use History: None Reported Past Drug Use History: None Reported - Past Family History Mother Family Medical History: Cancer, Diabetes Mellitus Additional Family Medical History / Comment(s): breast cancer Sister(s) Family Medical History: Diabetes Mellitus Additional Family Medical History / Comment(s): gestational diabetes Medications and Allergies Home Medications Medication Instructions Recorded Confirmed Type No Known Home Medications 01/03/24 01/03/24 History Allergies Allergy/AdvReac Type Severity Reaction Status Date / Time No Known Allergies Allergy Verified 01/03/24 20:22 Surgical - Exam Vital Signs Temp Pulse Resp BP Pulse Ox 98.7 F 96 18 127/69 99 01/03/24 16:44 01/03/24 16:44 01/03/24 16:44 01/03/24 16:44 01/03/24 16:44 - General mild distress well developed, well nourished - Eyes normal ocular movement, no icteric - ENT no hearing loss, no congestion - Neck no masses, trachea midline - Respiratory normal respiratory effort, clear to auscultation - Abdomen mild lt flank pain Abdomen: soft, no guarding, no rigid, no rebound - Integumentary no rash, no abnormal pigmentation - Neurologic no disoriented, no combative - Psychiatric oriented to time, oriented to person, oriented to place, speech is normal, memory intact Results - Labs 01/03/24 17:56 01/03/24 17:56 Abnormal Lab Results - Last 24 Hours (Table) 01/03/24 01/03/24 01/03/24 Range/Units 17:56 17:56 17:56 WBC 14.0 H (3.8-10.6) k/uL Neutrophils # (Manual) 13.16 H (1.3-7.7) k/uL Lymphocytes # (Manual) 0.56 L (1.0-4.8) k/uL Sodium 136 L (137-145) mmol/L Total Bilirubin 1.5 H (0.2-1.3) mg/dL Urine Appearance Turbid H (Clear) Urine Protein 2+ H (Negative) Urine Ketones 1+ H (Negative) Urine Blood Large H (Negative) Ur Leukocyte Esterase Large H (Negative) Urine RBC 135 H (0-5) /hpf Urine WBC >182 H (0-5) /hpf Urine WBC Clumps Many H (None) /hpf Ur Squamous Epith Cells 7 H (0-4) /hpf Urine Mucus Many H (None) /hpf Diabetes panel 01/03/24 Range/Units 17:56 Sodium 136 L (137-145) mmol/L Potassium 4.4 (3.5-5.1) mmol/L Chloride 107 (98-107) mmol/L Carbon Dioxide 24 (22-30) mmol/L BUN 13 (7-17) mg/dL Creatinine 0.83 (0.52-1.04) mg/dL Glucose 83 (74-99) mg/dL Calcium 8.5 (8.4-10.2) mg/dL AST 19 (14-36) U/L ALT 17 (4-34) U/L Alkaline Phosphatase 64 (38-126) U/L Total Protein 6.6 (6.3-8.2) g/dL Albumin 4.0 (3.5-5.0) g/dL Calcium panel 01/03/24 Range/Units 17:56 Calcium 8.5 (8.4-10.2) mg/dL Albumin 4.0 (3.5-5.0) g/dL Pituitary panel 01/03/24 Range/Units 17:56 Sodium 136 L (137-145) mmol/L Potassium 4.4 (3.5-5.1) mmol/L Chloride 107 (98-107) mmol/L Carbon Dioxide 24 (22-30) mmol/L BUN 13 (7-17) mg/dL Creatinine 0.83 (0.52-1.04) mg/dL Glucose 83 (74-99) mg/dL Calcium 8.5 (8.4-10.2) mg/dL Adrenal panel 01/03/24 Range/Units 17:56 Sodium 136 L (137-145) mmol/L Potassium 4.4 (3.5-5.1) mmol/L Chloride 107 (98-107) mmol/L Carbon Dioxide 24 (22-30) mmol/L BUN 13 (7-17) mg/dL Creatinine 0.83 (0.52-1.04) mg/dL Glucose 83 (74-99) mg/dL Calcium 8.5 (8.4-10.2) mg/dL Total Bilirubin 1.5 H (0.2-1.3) mg/dL AST 19 (14-36) U/L ALT 17 (4-34) U/L Alkaline Phosphatase 64 (38-126) U/L Total Protein 6.6 (6.3-8.2) g/dL Albumin 4.0 (3.5-5.0) g/dL - Imaging CT scan - abdomen: report reviewed CT scan - pelvis: report reviewed Assessment and Plan Assessment: Impression: left ureteral stone with colic and uti Plan: iv ab, cysto with left stent placement Time with Patient: Greater than 30
[2024-01-04] MEDS: PANTOPRAZOLE 40 MG/10 ML VIAL IV SCH (09:23)
[2024-01-04] MEDS: KETOROLAC 15 MG/ML 1 ML VIAL IVP PRN (09:23)
[2024-01-04 11:08] LABS: African American GFR (CKD) >90 (>60 ml/min/1.73 sqM); Anion Gap 5 mmol/L; Blood Urea Nitrogen 13 mg/dL (7-17); Calcium 7.5 mg/dL (8.4-10.2); Carbon Dioxide 22 mmol/L (22-30); Chloride 109 mmol/L (98-107); Glucose 74 mg/dL (74-99); Non-African American GFR(CKD) >90 (>60 ml/min/1.73 sqM); Sodium 136 mmol/L (137-145)
[2024-01-04 11:11] LABS: Basophils # (A) 0.1 k/uL (0-0.2); Basophils % (A) 1 %; Eosinophils # (A) 0.1 k/uL (0-0.7); Eosinophils % (A) 1 %; HCT 35.8 % (34.0-46.0); HGB 11.9 gm/dL (11.4-16.0); Lymphocytes # (A) 0.7 k/uL (1.0-4.8); Lymphocytes % (A) 7 %; MCH 28.7 pg (25.0-35.0); MCHC 33.2 g/dL (31.0-37.0); MCV 86.5 fL (80.0-100.0); Mean Platelet Volume 8.1; Monocytes # (A) 0.5 k/uL (0-1.0); Monocytes % (A) 5 %; Neutrophils # (A) 9.5 k/uL (1.3-7.7); Neutrophils % (A) 87 %; Platelet Count 193 k/uL (150-450); RBC 4.14 m/uL (3.80-5.40); RDW 13.6 % (11.5-15.5)
--- NOTE | 2024-01-04 13:48 | P.HPIM ---
History of Present Illness H&P Date: 01/04/24 This is a 28-year-old female with medical history significant for urinary tract infection, patient was admitted to [facility] yesterday found to have a ureteral stone was sent to follow-up with urology outpatient as the urologist was not available at [facility]. Patient's pain was worsening and not controlled at home so she came to [facility] for further evaluation. Reports fever and flank pain. No shortness of breath, no chest pain, not having any nausea vomiting or diarrhea. Patient does have an 8 mm obstructing stone in the left ureter, urology was consulted and is planning to take the patient for a cystoscopy with left ureter stent placement. Patient has abnormal urinary tract infection and an elevated white blood cell count of 14,000 she has a start empirically on IV ceftriaxone and a urine culture is currently pending. REVIEW OF SYSTEMS: CONSTITUTIONAL: No fever, no malaise, no fatigue. HEENT: No recent visual problems or hearing problems. Denied any sore throat. CARDIOVASCULAR: No chest pain, orthopnea, PND, no palpitations, no syncope. PULMONARY: No shortness of breath, no cough, no hemoptysis. GASTROINTESTINAL: No diarrhea, no nausea, no vomiting, no abdominal pain. NEUROLOGICAL: No headaches, no weakness, no numbness. HEMATOLOGICAL: Denies any bleeding or petechiae. GENITOURINARY: Denies any burning micturition, frequency, or urgency. MUSCULOSKELETAL/RHEUMATOLOGICAL: Denies any joint pain, swelling, or any muscle pain. ENDOCRINE: Denies any polyuria or polydipsia. The rest of the 14-point review of systems is negative. PHYSICAL EXAMINATION: GENERAL: The patient is alert and oriented x3, not in any acute distress. Well developed, well nourished. HEENT: Pupils are round and equally reacting to light. EOMI. No scleral icterus. No conjunctival pallor. Normocephalic, atraumatic. No pharyngeal erythema. No thyromegaly. CARDIOVASCULAR: S1 and S2 present. No murmurs, rubs, or gallops. PULMONARY: Chest is clear to auscultation, no wheezing or crackles. ABDOMEN: Soft, nontender, nondistended, normoactive bowel sounds. No palpable organomegaly. MUSCULOSKELETAL: No joint swelling or deformity. EXTREMITIES: No cyanosis, clubbing, or pedal edema. NEUROLOGICAL: Gross neurological examination did not reveal any focal deficits. SKIN: No rashes. Assessment and plan Obstructing kidney stone causing sepsis patient will be taken for a cystoscopy and left ureter stent placement continues on IV ceftriaxone with a pending urine culture Urinary tract infection and sepsis secondary to above Leukocytosis fever GI prophylaxis Full code The impression and plan of care has been dictated by Lucila Chaudhry, Nurse Practitioner as directed. Dr. Linda MD I have performed a history and physical examination and medical decision making of this patient, discussed the same with the dictator, and agree with the dictators assessment and plan as written, documented as a scribe. Based on total visit time, I have performed more than 50% of this visit. Past Medical History Past Medical History: No Reported History Additional Past Medical History / Comment(s): gestational diabetes History of Any Multi-Drug Resistant Organisms: None Reported Past Surgical History: Section, Tubal Ligation Additional Past Surgical History / Comment(s): ear tubes as an , 3 csections Past Anesthesia/Blood Transfusion Reactions: No Reported Reaction Past Psychological History: No Psychological Hx Reported Smoking Status: Never smoker Past Alcohol Use History: None Reported Past Drug Use History: None Reported - Past Family History Mother Family Medical History: Cancer, Diabetes Mellitus Additional Family Medical History / Comment(s): breast cancer Sister(s) Family Medical History: Diabetes Mellitus Additional Family Medical History / Comment(s): gestational diabetes Medications and Allergies Home Medications Medication Instructions Recorded Confirmed Type No Known Home Medications 01/03/24 01/03/24 History Allergies Allergy/AdvReac Type Severity Reaction Status Date / Time No Known Allergies Allergy Verified 01/03/24 20:22 Physical Exam Vitals: Vital Signs Temp Pulse Pulse Resp BP BP Pulse Ox 01/04/24 01:47 99.7 F H 115 H 18 116/72 97 01/03/24 21:30 97.7 F 115 H 16 107/64 99 01/03/24 20:53 118 H 18 120/68 100 01/03/24 18:58 100 18 139/99 100 01/03/24 16:44 98.7 F 96 18 127/69 99 Intake and Output 01/03/24 01/04/24 01/04/24 22:59 06:59 14:59 Other: Voiding Method Toilet # Voids 1 Weight 63.957 kg Results CBC & Chem 7: 01/04/24 10:15 01/04/24 10:15 Labs: Abnormal Lab Results - Last 24 Hours (Table) 01/03/24 01/03/24 01/03/24 Range/Units 17:56 17:56 17:56 WBC 14.0 H (3.8-10.6) k/uL Neutrophils # (Manual) 13.16 H (1.3-7.7) k/uL Lymphocytes # (Manual) 0.56 L (1.0-4.8) k/uL Sodium 136 L (137-145) mmol/L Total Bilirubin 1.5 H (0.2-1.3) mg/dL Urine Appearance Turbid H (Clear) Urine Protein 2+ H (Negative) Urine Ketones 1+ H (Negative) Urine Blood Large H (Negative) Ur Leukocyte Esterase Large H (Negative) Urine RBC 135 H (0-5) /hpf Urine WBC >182 H (0-5) /hpf Urine WBC Clumps Many H (None) /hpf Ur Squamous Epith Cells 7 H (0-4) /hpf Urine Mucus Many H (None) /hpf Thrombosis Risk Factor Assmnt - Choose All That Apply Any of the Below Risk Factors Present?: Yes Each Factor Represents 1 point: Obesity (BMI >25) Other Risk Factors: No Other congenital or acquired thrombophilia - If yes, enter type in comment: No Thrombosis Risk Factor Assessment Total Risk Factor Score: 1 Thrombosis Risk Factor Assessment Level: Low Risk Assessment and Plan Time with Patient: Less than 30
[2024-01-04] MEDS: IV FLUID CONTINUATION 1,000 ML IV ONE ×2 (14:35→16:41)
[2024-01-04] MEDS: ONDANSETRON 4 MG/2 ML VIAL IVP PRN (14:46)
[2024-01-04] MEDS ORDERED: PROPOFOL 10 MG/ML 20 ML VIAL IV ONE (16:06)
[2024-01-04] MEDS ORDERED: LIDOCAINE 1% INJ 10MG/ML (20 ML MDV) ONE (16:06)
[2024-01-04] MEDS ORDERED: fentaNYL (PF) 50 MCG/ML 2 ML AMP ONE (16:06)
[2024-01-04] MEDS ORDERED: MIDAZOLAM 2 MG/2 ML VIAL ONE (16:06)
--- NOTE | 2024-01-04 16:37 | P.OP ---
Date of Procedure: 01/04/24 Preoperative Diagnosis: Obstructing left ureteral calculus, urinary tract infection with sepsis, left pyelonephrosis Postoperative Diagnosis: same Procedure(s) Performed: cystoscopy, placement of 6 x 22 double-J catheter left Anesthesia: MISTI Surgeon: Miguel Palacio Estimated Blood Loss (ml): 0 Pathology: none sent Condition: stable Disposition: PACU Indications for Procedure: patient is 28. She initially at [facility] yesterday with an 8 mm proximal ureteral stone and urinary tract infection with sepsis. She eventually came to [facility] there is no urology service at [facility]. She is admitted for IV antibiotics IV fluids. I saw in consultation this morning she still in pain. She comes for cystoscopy and placement of stent to relieve the obstruction and infected urine. Operative Findings: acute cystitis. Left ureteral obstruction Description of Procedure: patient brought operating suite. Given general anesthetic. Placed lithotomy position with a sterile prep and drape. Cystoscopy Foroblique lens and 21- Mosotho sheath identifies diffuse status throughout the floor the bladder. The left orifice is identified. The orifice is quite tiny. An 035 wires eventually passed through the ureteral orifice up into the kidney by the obstructing stone in the mid ureter. Over the wires passed a 6 x 22 double-J catheter that coils in the renal pelvis and in the bladder. The bladder strain the patient is awakened and returned recovery in good condition. She tolerated the procedure well. She'll be observed in the hospital overnight. Blood loss is negligible
--- NOTE | 2024-01-04 17:48 | FL ---
EXAMINATION TYPE: FL guidance operating room DATE OF EXAM: 01/04/2024 5:05 PM CLINICAL INDICATION:Female, 28 years old with history of STENT; [facility] COMPARISON: None TECHNIQUE: FL guidance operating room FINDINGS: Fluoroscopic spot views were obtained intraoperatively during stent placement and saved to PACS. Total recorded fluoroscopy time 14.8 seconds. Please refer to operative note for full details. IMPRESSION: Documentation of fluoroscopy.
[2024-01-04 20:48] VITALS: RESP 16
[2024-01-05 08:06] VITALS: BP 125/80; PULSE 98
[2024-01-05 09:16] LABS: BUN/Creat Ratio 16.56 Ratio (12.00-20.00); Blood Urea Nitrogen 14.9 mg/dL (9.0-27.0); Calcium 8.1 mg/dL (8.7-10.3); Carbon Dioxide 20.3 mmol/L (21.6-31.8); Chloride 113 mmol/L (96-109); Glucose 102 mg/dL (70-110); Potassium 4.1 mmol/L (3.5-5.5); Sodium 140 mmol/L (135-145)
--- NOTE | 2024-01-05 09:34 | P.PN ---
Subjective Progress Note Date: 01/05/24 patient is in her first postoperative day from placement of a left double-J catheter for an obstructing ureteral stone, urinary tract infection with sepsis and pyelonephrosis. Her urine culture is negative. She is afebrile now. She is still having some stent discomfort. Objective - Vital Signs Vital signs: Vital Signs Temp 98.7 F 01/05/24 07:33 Pulse 98 01/05/24 07:33 Resp 16 01/05/24 07:33 BP 125/80 01/05/24 07:33 Pulse Ox 98 01/05/24 07:33 FiO2 Intake & Output 01/04/24 01/05/24 01/05/24 18:59 06:59 18:59 Intake Total 1240 830 Output Total 325 650 Balance 915 180 Intake: IV 700 Oral 540 830 Output: Urine 325 650 Other: Voiding Method Toilet Toilet # Voids 1 3 - Labs CBC & Chem 7: 01/04/24 10:15 01/05/24 05:05 Labs: Abnormal Lab Results - Last 24 Hours (Table) 01/04/24 01/04/24 01/05/24 Range/Units 10:15 10:15 05:05 WBC 11.0 H (3.8-10.6) k/uL Neutrophils # 9.5 H (1.3-7.7) k/uL Lymphocytes # 0.7 L (1.0-4.8) k/uL Sodium 136 L (137-145) mmol/L Chloride 109 H 113 H (98-107) mmol/L Carbon Dioxide 20.3 L (21.6-31.8) mmol/L Calcium 7.5 L 8.1 L (8.4-10.2) mg/dL Microbiology - Last 24 Hours (Table) 01/03/24 19:45 Blood Culture - Preliminary Blood 01/03/24 19:30 Blood Culture - Preliminary Blood 01/03/24 17:56 Urine Culture - Final Urine,Voided Assessment and Plan Assessment: impression: Obstructing left ureteral stone, urinary tract infection with sepsis, pyonephrosis Recommendations: The patient having a mild amount of stent discomfort do. She will have to tolerate this up. From a urologic standpoint she can be discharged as soon as the oral antibiotic situation can be clarified. She'll need a cy stoscopy left ureteroscopy with laser lithotripsy stone and stent removal in a couple weeks. This is been discussed at length with the patient and her sister.
[2024-01-05] MEDS: HYDROcodone/APAP 5-325MG 1 EACH TAB PO PRN (10:14)
[2024-01-05 10:16] VITALS: TEMP 98.4
== END 2024-01-05 13:34 | disposition home or self-care (01) | DRG 854 ==
LOC: EC 16:08 → 5NMEDONC 19:44
PROVIDERS: ADMIT Hospitalist; ATTEND Hospitalist
PROC: 0T778DZ Dilation of Left Ureter with Intraluminal Device, Via Natural or Artificial Opening Endoscopic (ICD-10-PCS; principal; 2024-01-04 16:08)
DX: A41.9 Sepsis, unspecified organism (principal); N13.6 Pyonephrosis; N30.00 Acute cystitis without hematuria; Z87.442 Personal history of urinary calculi; Z87.440 Personal history of urinary (tract) infections; Z28.310 Unvaccinated for COVID-19
CPT/HCPCS: 36415; 80048; 80053; 81001; 81025; 83605; 85025; 87040; 87086; 96361; 96374; 96375; 99285

== ENCOUNTER 2024-01-12 07:54 | Day surgery (SDC) | payer OTHER ==
--- NOTE | 2024-01-11 18:22 | P.GSHP ---
History of Present Illness H&P Date: 01/11/24 28 yo female with a history of stones and recurrent utis. SHe recently was at [facility] then [facility] with a uti, obstructing left uretral stone and pyonephrosis. A stent was placed and she was given ab. She has recouperated and now comes for a left ureteroscopy with laser lithotripsy. - Constitutional Constitutional: Denies chills, Denies fever - EENT Eyes: denies blurred vision, denies pain Ears, nose, mouth and throat: Denies headache, Denies sore throat - Cardiovascular Cardiovascular: Denies chest pain, Denies shortness of breath - Respiratory Respiratory: Denies cough, Denies 7 - Gastrointestinal Gastrointestinal: Denies abdominal pain, Denies diarrhea, Denies nausea, Denies vomiting - Genitourinary (Female) Genitourinary: Denies dysuria, Denies hematuria - Genitourinary (Male) Genitourinary: Denies dysuria, Denies hematuria - Musculoskeletal Musculoskeletal: Denies myalgias - Integumentary Integumentary: Denies pruritus, Denies rash - Neurological Neurological: Denies numbness, Denies weakness - Psychiatric Psychiatric: Denies anxiety, Denies depression - Endocrine Endocrine: Denies fatigue, Denies weight change Past Medical History Past Medical History: No Reported History Additional Past Medical History / Comment(s): gestational diabetes, current kidney stones. recent admit for kidney stone, sepsis and UTI completed abx. swelling to left leg History of Any Multi-Drug Resistant Organisms: None Reported Past Surgical History: Section, Tubal Ligation Additional Past Surgical History / Comment(s): ear tubes as an infant, 3 csections, ureteral stent Past Anesthesia/Blood Transfusion Reactions: No Reported Reaction Smoking Status: Former smoker, Vaper - Past Family History Mother Family Medical History: Cancer, Diabetes Mellitus, Deep Vein Thrombosis (DVT) Additional Family Medical History / Comment(s): breast cancer, pancreatic cancer Sister(s) Family Medical History: Diabetes Mellitus Additional Family Medical History / Comment(s): gestational diabetes Medications and Allergies Home Medications Medication Instructions Recorded Confirmed Type Famotidine [Pepcid] 20 mg PO DAILY #10 tablet 01/05/24 01/10/24 Rx Ketorolac [Toradol] 10 mg PO Q6HR #20 tab 01/05/24 01/10/24 Rx Tamsulosin HCl [Flomax] 0.4 mg PO DAILY 01/10/24 01/10/24 History oxyCODONE HCL/ACETAMINOPHEN 1 tab PO QID PRN 01/10/24 01/10/24 History [oxyCODONE HCL/ACETAMINOPHEN 7.5-325] Allergies Allergy/AdvReac Type Severity Reaction Status Date / Time No Known Allergies Allergy Verified 01/10/24 14:49 Surgical - Exam - General well developed, well nourished, no distress - Eyes normal ocular movement, no icteric - ENT no hearing loss, no congestion - Neck no masses, trachea midline - Respiratory normal respiratory effort, clear to auscultation - Abdomen Abdomen: soft, non tender, no guarding, no rigid, no rebound - Integumentary no rash, no abnormal pigmentation - Neurologic no disoriented, no combative - Psychiatric oriented to time, oriented to person, oriented to place, speech is normal, memory intact Results - Imaging Abdominal x-ray: report reviewed, image reviewed CT scan - abdomen: report reviewed, image reviewed CT scan - pelvis: report reviewed, image reviewed Assessment and Plan Assessment: Impression: left ureteral calculous, s/p stent placement with antibiotics Plan: cysto with left ureteroscopy with laser lithotripsy
--- NOTE | 2024-01-12 08:48 | XR ---
EXAMINATION TYPE: XR KUB DATE OF EXAM: 01/12/2024 8:10 AM CLINICAL INDICATION:Female, 28 years old with history of N20.1 Ureteral Stone; COMPARISON: None. TECHNIQUE: One radiographic view of the abdomen was obtained. FINDINGS: The bowel gas pattern is nonspecific without dilated loops of small or large bowel. There i s no evidence for organomegaly or pneumoperitoneum. The osseous structures are intact. No abnormal calcifications are present. Fecal material and gas are demonstrated throughout the colon and rectum. Left ureteral stent with poor pigtail formation superiorly. The inferior pigtail urinary bladder cornelio ears appropriate. Bilateral tubal ligation clips. IMPRESSION: 1. Left ureteral stent with poor pigtail formation superiorly. The inferior pigtail urinary bladder appears appropriate. 2. Nonspecific bowel gas pattern without radiographic evidence for acute process.
[2024-01-12 09:02] VITALS: RESP 16
[2024-01-12 09:13] LABS: Glucose,Whole Blood 79 mg/dL (70-110)
[2024-01-12] MEDS: IV FLUID CONTINUATION 1,000 ML IV ONE (09:14)
[2024-01-12] MEDS: LACTATED RINGERS 1,000 ML BAG IV STA (09:16)
[2024-01-12] MEDS: AMPICILLIN 1,000 MG in SODIUM CHLORIDE 0.9% 50 ML IVPB PRN (09:32)
[2024-01-12] MEDS: ONDANSETRON 4 MG/2 ML VIAL IVP STA (09:40)
[2024-01-12] MEDS: DEXAMETHASONE SOD PHOSPHATE 4 MG/ML 1 ML VIAL IVP STA (09:40)
[2024-01-12] MEDS ORDERED: PHENYLEPHRINE 10 MG/ML VIAL ONE (10:21)
[2024-01-12] MEDS: GENTAMICIN 80 MG in SODIUM CHLORIDE 0.9% 100 ML IVPB PRN (10:21)
[2024-01-12] MEDS ORDERED: LIDOCAINE 1% INJ 10MG/ML (20 ML MDV) ONE (10:21)
[2024-01-12] MEDS ORDERED: MIDAZOLAM 2 MG/2 ML VIAL ONE (10:21)
[2024-01-12] MEDS ORDERED: PROPOFOL 10 MG/ML 20 ML VIAL IV ONE (10:21)
[2024-01-12] MEDS ORDERED: fentaNYL (PF) 50 MCG/ML 2 ML AMP ONE (10:21)
[2024-01-12 11:08] VITALS: TEMP 97.1
--- NOTE | 2024-01-12 11:09 | P.OP ---
Date of Procedure: 01/12/24 Preoperative Diagnosis: left ureteral calculus, status post stent placement for urinary tract infection with sepsis, pyonephrosis Postoperative Diagnosis: same Procedure(s) Performed: cystoscopy with left ureteroscopy and laser to, stone basketing Anesthesia: MISTI Surgeon: Miguel Palacio Estimated Blood Loss (ml): 0 Pathology: other (stone) Condition: stable Disposition: PACU Indications for Procedure: patient is 28. She recently was in the hospital with an obstructing left ur eteral stone, urinary tract infection secondary urinary tract infection with sepsis and pyelonephrosis. A stent was placedinfection is treated. She now comes for stent and stone removal Description of Procedure: patient brought to the operating suite. She given general anesthetic. She's placed lithotomy position with sterile prep and drape. Cystoscopy 22-Irish sheath and Foroblique lens reveals a healed bladder without evidence of infection a left double-J catheter normal right ureteral orifice. A left double-J catheters brought to the urethral meatus and an 035 wires passed through it up into the kidney. I removed the cystoscope and over the wires passed [id number] ureteral sheath with inner sheath been removed as well as a wire. Through the inner sheath I passed the flexible ureteroscope into the kidney. I look in each calyx and eventually finding the stone in the lower pole calyx of. The 200 laser probe the stone was dusted into very tiny fragments. I basket the largest fragments which are millimeter passed a. End of the procedure there is no remaining fragments. Pullout ureteroscopy does not identify any further stone or edema. The bladder is drained the patient is awake and returned recovery in good condition. She tolerated procedure well and will be discharged home upon recovery and found the office in one week.
[2024-01-12] MEDS: KETOROLAC 15 MG/ML 1 ML VIAL IVP STA (11:43)
[2024-01-12 11:47] VITALS: PULSE 72
[2024-01-12] MEDS: HYDROmorphone 0.5 MG/0.5 ML SYRINGE IVP STA (11:57)
[2024-01-12] MEDS: oxyCODONE-APAP 7.5-325MG 1 EACH TAB PO STA (12:33)
[2024-01-12 13:02] VITALS: BP 106/72
--- NOTE | 2024-01-12 13:29 | FL ---
EXAMINATION TYPE: FL guidance operating room Intraoperative/procedural fluoroscopic services were pro vided. Total fluoroscopy time is 5.5 seconds with a total of 3 submitted images to PACS. Please see t he operative/procedural note for further details. DAP: [id number] Gycm2
== END 2024-01-12 13:06 | disposition home or self-care (01) ==
LOC: OR 07:54
PROVIDERS: ATTEND Urology
DX: N13.6 Pyonephrosis (principal); Z87.440 Personal history of urinary (tract) infections; Z87.891 Personal history of nicotine dependence; Z98.51 Tubal ligation status
CPT/HCPCS: 52352; 81025; 82365; 74018; C1769; J2250; J1100; J2405; J2001; J3010; J1580; J0290; J1885; J2704; J1170; J2371